=== PATIENT | female | born 1945 | race Caucasian/White ===

== ENCOUNTER 2016-11-17 08:11 | Day surgery (SDC) | payer MEDICARE ==
[~2016-11-17] VITALS: Ht 155 cm; Wt 117.5 kg
[~2016-11-17 08:11] MED LIST: ALMACONE 360 M360 ML PO; ALPHAGAN OP; ALPHAGAN OPHTH D5 ML OP; AMOXICILLIN 50500 MG PO; ASPIRIN 32325 MG/TAB PO; ASPIRIN 81M81 MG/TA2 PO; B-121000 MCG PO; BETIMOL 0.5% OPH5 ML OP; CALCITRIOL PO; CALCIUM + D 5001 TAB PO; CALCIUM/VITAMIN1 TA2 PO; CALTRATE 600 +1 TAB PO; COLACE 100100 MG/CAP PO; CYMBALTA 30MG30 MG PO; DDAVP PO; DDAVP0.1 MG PO; DEMADEX 20MG20 M1 PO; DESMOPRESSIN A0.1 MG PO; DITROPAN XL10 MG PO; FEOSOL45 MG PO; FERROUS SU325 MG/TAB PO; FLUOXETINE20 MG PO; FOLIC ACID PO; FUROSEMIDE20 MG PO; GENTLE LAXATIVE10 MG RC; HYDROCODONE/APAP PO; LASIX 20MG TABL20 MG PO; LASIX20 MG PO; LEVAQUIN 750MG750 M1 PO; LEVOTHYROXINE PO; MAG-OX 400400 MG/TAB PO; MILK OF MA400 MG/52 PO; MIRALAX PA17 GM/Dose PO; MONODOX100 PO; MULTAQ400 MG PO; NEXIUM 40MG40 MG PO; NEXIUM40 MG PO; NORCO 325 MG-7.1 TAB PO; NYSTATIN POWDER15 GM TOP; OSCAL 500MG/VI500 MG PO; PRAVACHOL 20MG20 MG PO; PRAVASTATIN20 MG PO; PREDNISONE 2.52.5 MG PO; PREDNISONE 5MG5 MG PO; PREDNISONE20 MG PO; PRIL40 PO; PROZAC 20MG20 MG PO; PROZAC40 MG PO; ROBAXIN 75750 MG/TAB PO; ROCALTROL0.5 MCG PO; ROCEPHIN VIA1 G/VIAL IV; SYNTHROID0.075 MG PO; SYNTHROID0.088 MG/T PO; TEARS AGAIN OU; TIMOLOL 0.5% OP10 ML OU; TRUSOPT OCUMETE10 ML OP; TYLENOL 325MG325 MG PO; TYLENOL SU650 MG/SUP RC; Tramadol; ULTRAM 50MG TAB50 MG PO; VESICARE5 MG PO; VICODIN 5/5001 UDTAB PO; VITAMIN B-1000 MCG/T PO; VITAMIN B121000 MC2 SL; VITAMIN B121000 MCG PO; VITAMIN C250250 MG PO; VITAMIN D1000 IU PO; VITAMIN D31000 IU PO; XALATAN EYE DROPS OD; ZEBETA 5MG5 MG PO; ZOFRAN 4MG T4 MG/TAB PO
[2016-11-17 08:58] LABS: MEAN CELL VOLUME 95 fl (80.0-100.0); MEAN CORPUSCULAR HGB CONC 33 g/dl (33.0-37.0); MEAN PLATELET VOLUME 9.1 fl (7.4-10.4); PLATELET COUNT 188 K/mm3 (130-400); REDCELL DISTRIBUTION WIDTH-CV 14.7 % (11.5-14.5); WHITE BLOOD COUNT 7.9 K/mm3 (4.8-10.8)
[2016-11-17 09:00] VITALS: BP 123/67; PULSE 68; TEMP 98
[2016-11-17 09:04] LABS: CALCIUM 8.9 mg/dL (8.4-10.2); CREATININE, serum 1.53 mg/dL (0.52-1.25); POTASSIUM 3.6 mmol/L (3.4-5.0)
[2016-11-17 09:05] LABS: HEMATOCRIT 34.1 % (37.0-47.0); HEMOGLOBIN 11.3 g/dl (12.5-16.0); MEAN CORPUSCULAR HEMOGLOBIN 31 pg (27.0-31.0)
[2016-11-17 09:08] LABS: INR 1.7 (0.8-3.0); PROTHROMBIN TIME 18.9 SECONDS (9.7-12.8)
[2016-11-17] MEDS ORDERED: K-DUR20 MEQ PO (09:11)
[2016-11-17] MEDS ORDERED: CARDIZEM CD 12120 MG PO (09:19)
[2016-11-17] MEDS ORDERED: XARELTO15 MG PO (09:20)
[2016-11-17 09:45] VITALS: BP 103/75; PULSE 61
[2016-11-17 10:00] VITALS: BP 112/68; PULSE 77
[2016-11-17 10:15] VITALS: BP 112/69; PULSE 71
[2016-11-17 10:30] VITALS: BP 119/75; PULSE 90; TEMP 97.3
== END 2016-11-17 11:00 | disposition home or self-care (01) ==
LOC: COL.CAR 08:11
PROVIDERS: Internal Medicine Cardiovascular Disease
DX: I48.91 Unspecified atrial fibrillation (principal)
CPT/HCPCS: J2704; J7120

== ENCOUNTER → 2017-04-30 | Outpatient (CLI) | payer MEDICARE ==
[~2017-04-30] MED LIST changes: +CARDIZEM CD 12120 MG PO; +K-DUR20 MEQ PO; +XARELTO15 MG PO
== END ==
LOC: MC.RAD 11:20
DX: Z12.31 Encounter for screening mammogram for malignant neoplasm of breast (principal)

== ENCOUNTER → 2017-08-04 | Outpatient (CLI) | payer MEDICARE | LOC: MHCPAIN 12:08 | DX: G89.29 Other chronic pain (principal); M47.812 Spondylosis without myelopathy or radiculopathy, cervical region; R51 Headache; M54.81 Occipital neuralgia | CPT/HCPCS: G0463 ==

== ENCOUNTER → 2017-08-13 | Outpatient (CLI) | payer MEDICARE | LOC: COL.CARD 13:00 | DX: G44.229 Chronic tension-type headache, not intractable (principal); I49.9 Cardiac arrhythmia, unspecified ==

== ENCOUNTER 2017-11-09 10:22 | Day surgery (SDC) | payer MEDICARE ==
[~2017-11-09] VITALS: Ht 154.9 cm; Wt 122.3 kg
[2017-11-09] MEDS ORDERED: ZANAFLEX 4MG TAB4 MG PO (12:01)
[2017-11-09] MEDS ORDERED: EFFEXOR XR75 MG/CAP PO (12:01)
[2017-11-09] MEDS ORDERED: LIPITOR20 MG PO (12:02)
[2017-11-09] MEDS ORDERED: CEPHALEXIN500 M1 PO (12:04)
[2017-11-09 12:14] VITALS: BP 140/64; PULSE 84; TEMP 98.2
[2017-11-09 14:02] VITALS: BP 104/59; PULSE 96
[2017-11-09 14:17] VITALS: BP 106/66; PULSE 87
[2017-11-09] MEDS ORDERED: NORCO 325 MG-51 TAB PO (14:29)
[2017-11-09 14:32] VITALS: BP 95/55; PULSE 85
== END 2017-11-09 15:00 | disposition home or self-care (01) ==
LOC: SDCO 10:22
DX: N39.41 Urge incontinence (principal); Z87.440 Personal history of urinary (tract) infections; I10 Essential (primary) hypertension; G47.30 Sleep apnea, unspecified; Z85.850 Personal history of malignant neoplasm of thyroid; Z79.899 Other long term (current) drug therapy; Z79.01 Long term (current) use of anticoagulants
CPT/HCPCS: C1767; C1778; C1787; C1894; J2250; J2405; J2704; J2765; J3010; J7120

== ENCOUNTER 2018-10-16 01:56 | Inpatient (IN) | payer MEDICARE ==
[~2018-10-16] VITALS: Ht 157.5 cm; Wt 127.8 kg
[~2018-10-16 01:56] MED LIST changes: +CEPHALEXIN500 M1 PO; +EFFEXOR XR75 MG/CAP PO; +LIPITOR20 MG PO; +NORCO 325 MG-51 TAB PO; +ZANAFLEX 4MG TAB4 MG PO
[2018-10-16 06:05] VITALS: BP 148/89; PULSE 67; TEMP 97.4
[2018-10-16 07:06] LABS: MEAN CELL VOLUME 99 fl (80.0-100.0); MEAN CORPUSCULAR HGB CONC 31 g/dl (33.0-37.0); MEAN PLATELET VOLUME 8.4 fl (7.4-10.4); PLATELET COUNT 186 K/mm3 (130-400); RED BLOOD COUNT 2.75 M/mm3 (4.10-5.30); REDCELL DISTRIBUTION WIDTH-CV 16.7 % (11.5-14.5)
[2018-10-16 07:07] LABS: HEMATOCRIT 27.3 % (37.0-47.0); HEMOGLOBIN 8.5 g/dl (12.5-16.0); MEAN CORPUSCULAR HEMOGLOBIN 31 pg (27.0-31.0)
--- NOTE | 2018-10-16 07:12 | NUR ---
Patient to the floor at 0510. Patient reported to refuse IV. During 5-page assessment, patient kept falling asleep. Attempted to talk to patient about medications, but patient stated she doesn't know what she takes and she gets her medications from [facility]. She had brought some of her medications with her in a black bag, but refused to send them to pharmacy and states she will not take hospital medications.
[2018-10-16 07:15] LABS: ALBUMIN 3.9 gm/dL (3.5-5.0); BILIRUBIN,TOTAL 0.7 mg/dL (0.0-1.0); CALCIUM 9.8 mg/dL (8.4-10.2); CREATININE, serum 1.83 (0.52-1.25); TOTAL PROTEIN 6.9 gm/dL (6.4-8.2)
[2018-10-16 07:18] LABS: PROTHROMBIN TIME 22.4 SECONDS (9.7-12.8)
[2018-10-16 07:22] LABS: PRE ALBUMIN 16.4 mg/dL (17.6-36.0)
[2018-10-16 08:14] VITALS: BP 134/46; PULSE 83; TEMP 97.7
--- NOTE | 2018-10-16 09:30 | NUR ---
PATIENT ASSESSMENT COMPLETED. WE TALKED AT LENGTH ABOUT TAKING OUR MEDICATIONS NOT HERS FOR ROUTINE USE. WAS ASSISTED TO THE BEDSIDE COMMODE AND TOLERATED WELL. WHEN SHE RETURNS TO BED SHE COMPLAINS OF SHOOTING PAIN TO THE LEFT KNEE.
[2018-10-16 09:52] LABS: ANISOCYTOSIS 1+; BAND 5 % (0-10); EOSINOPHIL 2 % (0-4); LYMPHOCYTE 27 % (20.0-51.0); NEUTROPHILS 61 % (42.0-75.2)
[2018-10-16 09:53] LABS: PLATELET ESTIMATE NORMAL (NORMAL)
--- NOTE | 2018-10-16 10:06 | NUR ---
REVIEWED HOME EYE DROPS AND THE NONFORMULARY HOME MEDICATION THAT SHE WILL BE RESUMING WHILE HERE IN THE HOSPITAL WITH DR. GUERRA. HE WILL REVIEW OTHER HOME MEDICATIONS THAT HAVE NOT BEEN RESTARTED.
--- NOTE | 2018-10-16 11:38 | NUR ---
Plan is to return home independently. Assess: Patient reports that she resides at home with her mother who is 95. Patient indicated that she is pending Knee surgery and would like to go to [facility] for rehab. Patient reports that she is wanting to go home with homehealth prior to surgery and believes that she can manage until then. Patient reports that she is using a walker and can everyday. Patient reports that her DPOA an EMR contact is Pam Mendoza. Patient reports being able to transport self. Action educated patient on homehealth care and provided patient with Medicare.gov resource sheet. Awaiting decision to send referral. Will confirm with [facility] a for placement tracking.
[2018-10-16 11:49] VITALS: BP 115/67; PULSE 66; TEMP 97.2
[2018-10-16 14:58] LABS: COLLECTION METHOD CLEAN CATCH
[2018-10-16 15:07] LABS: PH 6 (5-8); SQUAMOUS EPITHELIAL None Seen /hpf; URINE APPEARANCE Turbid; URINE BACTERIA None Seen /hpf; URINE BILIRUBIN Negative (NEGATIVE); URINE BLOOD 1+ (NEGATIVE); URINE COLOR Yellow; URINE GLUCOSE Negative (NEGATIVE); URINE KETONE Negative (NEGATIVE); URINE LEUKOCYTE ESTERASE 3+ (NEGATIVE); URINE NITRATE Positive (NEGATIVE); URINE PROTEIN(semi-quant) 2+ (NEGATIVE); URINE UROBILINOGEN Negative (NEGATIVE)
[2018-10-16 15:32] VITALS: BP 144/93; PULSE 66; TEMP 97.8
--- NOTE | 2018-10-16 17:29 | NUR ---
PATIENT UP IN BED EATING SUPPER. SHE IS NOW WILLING TO TAKE HER HOME MED AND XARELTO. NO OTHER NEEDS OR REQUESTS AT THIS TIME
[2018-10-16 19:51] VITALS: BP 124/73; PULSE 81; TEMP 97.8
--- NOTE | 2018-10-16 20:10 | NUR ---
Shift assessment complete. Pt resting in bed, awake, a&o, cooperative c cares. Pt reports continued pain to L knee, PRN [place] admin per pt req. Pt denies any other c/o. No IV access at this time, pt ref. Pt denies further needs at this time. Call light in reach, will monitor.
[2018-10-16 23:53] VITALS: BP 111/63; PULSE 40; TEMP 97.3
[2018-10-17 04:16] VITALS: BP 134/65; PULSE 74; TEMP 97.3
--- NOTE | 2018-10-17 05:50 | NUR ---
Pt resting in bed, condition unchanged. Pt has rested well this shift c very few needs. Pain well controlled c PRN pain med x1 dose at HS. Pt s needs at this time. No needs at this time. Call light in reach.
[2018-10-17 06:28] LABS: MEAN CELL VOLUME 100 fl (80.0-100.0); MEAN CORPUSCULAR HGB CONC 31 g/dl (33.0-37.0); MEAN PLATELET VOLUME 8.7 fl (7.4-10.4); PLATELET COUNT 159 K/mm3 (130-400); RED BLOOD COUNT 2.56 M/mm3 (4.10-5.30); REDCELL DISTRIBUTION WIDTH-CV 16.8 % (11.5-14.5); RETIC # 0.08 M/mm3 (0.02-0.16); RETIC % 3.2 % (0.5-3.52)
[2018-10-17 06:29] LABS: HEMATOCRIT 25.7 % (37.0-47.0); HEMOGLOBIN 7.9 g/dl (12.5-16.0); MEAN CORPUSCULAR HEMOGLOBIN 31 pg (27.0-31.0)
[2018-10-17 06:50] LABS: ALANINE AMINOTRANSFERASE 25 U/L (9-52); ALBUMIN 3.4 gm/dL (3.5-5.0); ALKALINE PHOSPHATASE 135 U/L (50-136); ANION GAP 10 mmol/L (7-16); AST,SGOT 41 U/L (15-37); BILIRUBIN,TOTAL 0.5 mg/dL (0.0-1.0); BLOOD UREA NITROGEN 29 mg/dL (7-17); CALCIUM 9.2 mg/dL (8.4-10.2); CARBON DIOXIDE 28 mmol/L (22-30); CHLORIDE 101 mmol/L (98-107); CREATININE, serum 1.45 (0.52-1.25); GLUCOSE 128 mg/dL (74-106); IRON,SERUM 65 ug/dL (35-150); MAGNESIUM 2.1 mg/dL (1.6-2.3); PHOSPHOROUS 4.5 mg/dL (2.5-4.5); POTASSIUM 4.1 mmol/L (3.4-5.0); SODIUM 138 mmol/L (137-145)
[2018-10-17 07:00] LABS: TOTAL IRON BINDING CAPACITY 261 ug/dL (265-497)
[2018-10-17 07:12] LABS: BAND 3 % (0-10); EOSINOPHIL 5 % (0-4); LYMPHOCYTE 17 % (20.0-51.0); NEUTROPHILS 67 % (42.0-75.2); NUCLEATED RED BLOOD CELL 1 (0-6)
[2018-10-17 07:13] LABS: PLATELET ESTIMATE NORMAL (NORMAL)
[2018-10-17 07:24] LABS: FERRITIN 42 ng/mL (11-264)
[2018-10-17 07:34] LABS: THYROID STIMULATING HORMONE < 0.015 uIU/mL (0.465-4.680)
[2018-10-17 08:07] VITALS: BP 120/74; PULSE 79; TEMP 98
[2018-10-17 11:32] VITALS: BP 129/76; PULSE 94; TEMP 97.6
--- NOTE | 2018-10-17 11:55 | NUR ---
Pt alert and oriented. Pt stable this am. Pain managed with Hydrocodone PRN. Pt has chronic left knee pain and fibromyalgia. Pt obese and BLE edema noted. Pt up with SBA with walker. Pt has no IV because she refuses. Pt was to have MRI but cancelled and will see ortho per consult this afternoon. 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
[2018-10-17] MEDS ORDERED: CEPHALEXIN500 M1 PO (12:04)
--- NOTE | 2018-10-17 14:48 | NUR ---
DONNY and SW student met with the patient to review discharge plan and to inquire home health preference. The patient reports that she is not interested in home health at this time and would rather get that service set up after her surgery. The patient is to discharge back home today, 10/17. No additional needs at this time.
[2018-10-17 16:41] LABS: CREATININE, serum 1.51 (0.52-1.25); FRACTIONAL EXCRETION OF NA+ 0.4 %
--- NOTE | 2018-10-17 17:00 | NUR ---
Pt given discharge instructions and reviewed medications and rx to sweet pickle maker. Pt rates pain 2/. Pt SBA with walker. Pt did not have an IV. Pt has all belongings and escorted out by aide under contact precautions. Pt given all meds from pharmacy that pt brought in. Pt has appt with Dr. Keene on Wed. Pt denies needs and friend here to pick her up.
[2018-10-17 21:05] LABS: FOLATE (FOLIC ACID) 4.9 ng/mL (7.0-31.4)
== END 2018-10-17 17:30 | disposition home or self-care (01) | DRG 556 ==
LOC: COL.ER 01:56 → MEDICAL 04:11
PROVIDERS: Nurse Practitioner; Physician Assistant; ADMIT Family Medicine
DX: M25.562 Pain in left knee (principal); E23.0 Hypopituitarism; N39.0 Urinary tract infection, site not specified; N17.9 Acute kidney failure, unspecified; Z68.42 Body mass index [BMI] 45.0-49.9, adult; I48.91 Unspecified atrial fibrillation; J44.9 Chronic obstructive pulmonary disease, unspecified; E66.9 Obesity, unspecified; M79.7 Fibromyalgia; M06.9 Rheumatoid arthritis, unspecified; Z85.850 Personal history of malignant neoplasm of thyroid; E89.0 Postprocedural hypothyroidism; Z79.890 Hormone replacement therapy; Z79.01 Long term (current) use of anticoagulants; Z88.3 Allergy status to other anti-infective agents; Z88.2 Allergy status to sulfonamides; Z88.8 Allergy status to other drugs, medicaments and biological substances; I12.9 Hypertensive chronic kidney disease with stage 1 through stage 4 chronic kidney disease, or unspecified chronic kidney disease; G47.33 Obstructive sleep apnea (adult) (pediatric); H40.9 Unspecified glaucoma; E78.5 Hyperlipidemia, unspecified; D64.9 Anemia, unspecified; N18.3 Chronic kidney disease, stage 3 (moderate); M17.12 Unilateral primary osteoarthritis, left knee
CPT/HCPCS: 99222-AI; 99233-AI; A9284; J3010; J7512

== ENCOUNTER → 2018-10-19 | Outpatient (CLI) | payer MEDICARE | LOC: ZCOL.LAB 16:58 | DX: Z01.812 Encounter for preprocedural laboratory examination (principal); Z86.14 Personal history of Methicillin resistant Staphylococcus aureus infection ==

== ENCOUNTER 2018-12-02 13:47 | Outpatient (RCR) | payer MEDICARE ==
[~2018-12-02 13:47] MED LIST changes: -ALPHAGAN OPHTH D5 ML OP; +ALPHAGAN OPHTH D5 ML OU; -TRUSOPT OCUMETE10 ML OP; +TRUSOPT OCUMETE10 ML OU; -XALATAN EYE DROPS OD; +XALATAN EYE DROPS OU
[2019-01-09] MEDS ORDERED: MACRODANTIN100 PO (10:49)
[2019-01-09] MEDS ORDERED: TYLENOL 500MG500 MG PO (10:50)
[2019-01-09] MEDS ORDERED: DDAVP (10:51)
[2019-01-09] MEDS ORDERED: CALCITRIOL PO (13:58)
[2019-01-09] MEDS ORDERED: EFFEXOR-XR150 MG PO (14:00)
[2019-01-09] MEDS ORDERED: LIPITOR 10MG10 MG PO (14:05)
[2019-01-09] MEDS ORDERED: ZANAFLEX2 MG PO (14:09)
[2019-01-09] MEDS ORDERED: ROXICODONE 55 MG/TAB PO (14:15)
[2019-01-09] MEDS ORDERED: NYSTATIN POWDER15 GM TOP (14:15)
[2019-01-12] MEDS ORDERED: OMNICEF 300MG300 MG PO (09:30)
== END 2019-02-17 17:35 | disposition home or self-care (01) ==
LOC: WSC 13:47
DX: M17.12 Unilateral primary osteoarthritis, left knee (principal); Z96.652 Presence of left artificial knee joint

== ENCOUNTER → 2018-12-19 | Outpatient (CLI) | payer MEDICARE ==
[~2018-12-19] MED LIST changes: +ALPHAGAN OPHTH D5 ML OP; -ALPHAGAN OPHTH D5 ML OU; +TRUSOPT OCUMETE10 ML OP; -TRUSOPT OCUMETE10 ML OU; +XALATAN EYE DROPS OD; -XALATAN EYE DROPS OU
[2018-12-19 19:48] LABS: COLLECTION METHOD CLEAN CATCH
[2018-12-19 20:03] LABS: PH 6 (5-8); URINE APPEARANCE Turbid; URINE BACTERIA Moderate /hpf; URINE BILIRUBIN Negative (NEGATIVE); URINE BLOOD 1+ (NEGATIVE); URINE COLOR Amber; URINE GLUCOSE Negative (NEGATIVE); URINE KETONE Negative (NEGATIVE); URINE LEUKOCYTE ESTERASE 3+ (NEGATIVE); URINE NITRATE Negative (NEGATIVE); URINE PROTEIN(semi-quant) 1+ (NEGATIVE); URINE UROBILINOGEN Negative (NEGATIVE); URINE WBC >50 /hpf
== END ==
LOC: ZCOL.LAB 19:18
PROVIDERS: Family Medicine
DX: N39.0 Urinary tract infection, site not specified (principal)

== ENCOUNTER 2019-01-09 09:57 | Inpatient (IN) | payer MEDICARE ==
[~2019-01-09] VITALS: Ht 154.9 cm; Wt 128.8 kg
[2019-01-09] VITALS (434 sets, daily range): BP systolic 101–131; BP diastolic 62–78; PULSE 99–121; TEMP 98.8–99.3; O2SAT 66–100
[~2019-01-09 09:57] MED LIST changes: -ALPHAGAN OPHTH D5 ML OP; +ALPHAGAN OPHTH D5 ML OU; -TRUSOPT OCUMETE10 ML OP; +TRUSOPT OCUMETE10 ML OU; -XALATAN EYE DROPS OD; +XALATAN EYE DROPS OU
[2019-01-09 10:32] LABS: BASO # 0.1 (0.0-0.2); BASO % 0.8 % (0.0-2.0); EOS # 0.2 (0.0-0.7); EOS % 1.5 % (0-4.0); GRAN # 14.1 (1.4-6.5); GRAN % 85.5 % (42.2-75.2); LYMPH % 6.1 % (20.0-51.0); MEAN CELL VOLUME 102 fl (80.0-100.0); MEAN CORPUSCULAR HGB CONC 30 g/dl (33.0-37.0); MEAN PLATELET VOLUME 8.1 fl (7.4-10.4); MONO # 0.9 (0.1-0.6); MONO % 5.6 % (1.7-9.3); PLATELET COUNT 218 K/mm3 (130-400); RED BLOOD COUNT 2.68 M/mm3 (4.10-5.30); REDCELL DISTRIBUTION WIDTH-CV 19.1 % (11.5-14.5)
[2019-01-09 10:33] LABS: ALANINE AMINOTRANSFERASE 17 U/L (9-52); ALBUMIN 4.1 gm/dL (3.5-5.0); ALKALINE PHOSPHATASE 156 U/L (50-136); ANION GAP 12 mmol/L (7-16); AST,SGOT 27 U/L (15-37); BILIRUBIN,TOTAL 1.1 mg/dL (0.0-1.0); BLOOD UREA NITROGEN 20 mg/dL (7-17); CALCIUM 7.4 mg/dL (8.4-10.2); CARBON DIOXIDE 31 mmol/L (22-30); CHLORIDE 97 mmol/L (98-107); CREATININE, serum 1.16 (0.52-1.25); GLUCOSE 109 mg/dL (74-106); POTASSIUM 3.1 mmol/L (3.4-5.0); SODIUM 141 mmol/L (137-145); TOTAL PROTEIN 7.2 gm/dL (6.4-8.2)
[2019-01-09 10:37] LABS: HEMATOCRIT 27.3 % (37.0-47.0); HEMOGLOBIN 8.2 g/dl (12.5-16.0); MEAN CORPUSCULAR HEMOGLOBIN 31 pg (27.0-31.0)
[2019-01-09 10:43] LABS: INR 1.8 (0.8-3.0); PROTHROMBIN TIME 21.3 SECONDS (9.7-12.8)
[2019-01-09 10:45] LABS: PARTIAL THROMBOPLASTIN TIME 35.8 SECONDS (26.0-37.0)
[2019-01-09 10:46] LABS: TROPONIN-I < 0.012 ng/mL (0.000-0.035)
[2019-01-09] MEDS ORDERED: MACRODANTIN100 PO (10:49)
[2019-01-09] MEDS ORDERED: TYLENOL 500MG500 MG PO (10:50)
[2019-01-09] MEDS ORDERED: DDAVP (10:51)
[2019-01-09 11:35] LABS: COLLECTION METHOD CLEAN CATCH
[2019-01-09 11:42] LABS: MUCOUS Present /lpf; PH 6 (5-8); SQUAMOUS EPITHELIAL 0-2 /hpf; URINE APPEARANCE Clear; URINE BACTERIA Rare /hpf; URINE BILIRUBIN Negative (NEGATIVE); URINE BLOOD 1+ (NEGATIVE); URINE COLOR Yellow; URINE GLUCOSE Negative (NEGATIVE); URINE KETONE Negative (NEGATIVE); URINE LEUKOCYTE ESTERASE Negative (NEGATIVE); URINE NITRATE Negative (NEGATIVE); URINE PROTEIN(semi-quant) Negative (NEGATIVE); URINE RBC 0-2 /hpf; URINE UROBILINOGEN Negative (NEGATIVE)
--- NOTE | 2019-01-09 13:10 | NUR ---
Report received from Conrado LACEY in ER and pt brought to ICU 3 on bipap. Did have to be moved from bed with slide board. Short of breath when lying flat. Bipap at bedside and placed on. Pt denies any pain. Will continue to follow.
[2019-01-09] MEDS ORDERED: CALCITRIOL PO (13:58)
[2019-01-09] MEDS ORDERED: EFFEXOR-XR150 MG PO (14:00)
[2019-01-09] MEDS ORDERED: LIPITOR 10MG10 MG PO (14:05)
[2019-01-09] MEDS ORDERED: ZANAFLEX2 MG PO (14:09)
[2019-01-09] MEDS ORDERED: NYSTATIN POWDER15 GM TOP (14:15)
[2019-01-09] MEDS ORDERED: ROXICODONE 55 MG/TAB PO (14:15)
[2019-01-09 15:46] LABS: ARTERIAL BLD GAS O2 SATURATION 97.1 % (92-100); ARTERIAL BLD GAS TCO2 CT 28.8; ARTERIAL BLOOD GAS BASE EXCESS 3.8 (-2-2); ARTERIAL BLOOD GAS HCO3 27.7 meq/L (22-26); ARTERIAL BLOOD GAS PCO2 38.6 mmHg (35-45); ARTERIAL BLOOD GAS PO2 100.8 mmHg (80-100); ARTERIAL BLOOD GAS pH 7.47 (7.35-7.45)
--- NOTE | 2019-01-09 17:38 | NUR ---
Returned to ICU [address] via bed with tech at side.
--- NOTE | 2019-01-09 17:54 | NUR ---
Report given to Sari LACEY and care transfered.
--- NOTE | 2019-01-09 17:54 | NUR ---
Report recieved from Jessica LACEY, patient awake in bed ordering supper. Denies needs at this time
--- NOTE | 2019-01-09 20:00 | NUR ---
Patient falls asleep intermittently. Patient has eaten a small portion of her dinner. Tray removed with her permission. Patient is alert and oriented. No complaints of pain. Only complains of slight SOB, but she has been placed on BiPAP and says that it is helping. Assessment complete. Right lung is clear in all patino, left lung has expiratory wheezes in all patino, bases are diminished bilaterally. HR and rhythm irregular, first heart sound heard, patient is in afib and intermittently tachycardic. Bowel sounds are active x4. Patient has edema to upper and lower extremities. Patient has no further needs at this time. Will continue to monitor. Call light within reach.
--- NOTE | 2019-01-09 20:27 | NUR ---
Report given to Mary LACEY
--- NOTE | 2019-01-09 20:30 | NUR ---
Bedside report received from ABHIJIT Guo
[2019-01-09 22:29] LABS: PROCALCITONIN 0.37 ng/mL (0.00-0.09)
[2019-01-09 22:44] LABS: FOLATE (FOLIC ACID) 10.2 ng/mL (7.0-31.4)
[2019-01-10] VITALS (487 sets, daily range): BP systolic 93–126; BP diastolic 54–90; PULSE 67–109; TEMP 97.9–99.2; O2SAT 64–100
--- NOTE | 2019-01-10 | NUR ---
Patient asleep at this time, but awakens to name. Patient is doing well and has no complaints. Patient remains on BiPAP. Vitals are stable and WNL. No further needs at this time, Will continue to monitor. Call light within reach
--- NOTE | 2019-01-10 04:00 | NUR ---
Patient asleep at this time. Awakens to name. No complaints of pain or SOB. Vitals remain stable. Patient remains on BiPAP. Assisted with sips of water. Patient has no further needs at this time. Repositioned for comfort. Will continue to monitor. Call light within reach.
[2019-01-10 05:06] LABS: MEAN CELL VOLUME 102 fl (80.0-100.0); MEAN CORPUSCULAR HGB CONC 30 g/dl (33.0-37.0); MEAN PLATELET VOLUME 8.3 fl (7.4-10.4); PLATELET COUNT 152 K/mm3 (130-400); REDCELL DISTRIBUTION WIDTH-CV 19.1 % (11.5-14.5)
[2019-01-10 05:09] LABS: HEMATOCRIT 21.5 % (37.0-47.0); HEMOGLOBIN 6.4 g/dl (12.5-16.0); MEAN CORPUSCULAR HEMOGLOBIN 30 pg (27.0-31.0)
[2019-01-10 05:15] LABS: CALCIUM 6.7 mg/dL (8.4-10.2); MAGNESIUM 1.9 mg/dL (1.6-2.3); POTASSIUM 3.6 mmol/L (3.4-5.0)
[2019-01-10 06:05] LABS: ANISOCYTOSIS 2+; BAND 9 % (0-10); HYPOCHROMIA 1+; LYMPHOCYTE 4 % (20.0-51.0); NEUTROPHILS 85 % (42.0-75.2); PLATELET ESTIMATE NORMAL (NORMAL)
--- NOTE | 2019-01-10 07:40 | NUR ---
Bedside report given to ABHIJIT Lopez and ABHIJIT Henriquez
--- NOTE | 2019-01-10 09:16 | NUR ---
DONNY met with the patient to discuss discharge plan. The patient lives in [place] with her ninety-five year-old mother, Lacy. She states that her mother is independent and that she has no concerns with her mom being alone at home. She states that her sister, Pam Cheng, also lives in [place]. She reports independence with ADLs and has walkers and a toliet riser. She states that she does receive home health services for PT/OT and group home from [facility]. She states that they wrap her legs and remove the wraps to help her with her lymphedema. SW contacted and confirmed services from Delvin at [facility]. The patient's PCP is Dr. Hillary Juarez and she receives her medications from [facility]. She reports no difficulties obtaining her meds. The patient does not have advanced directives in EMR, but she states that she believes she has them completed and at home. She states her sister, Pam Cheng, would be her DPOA-HC and next of kin. The patient was not interested in receiving or completing a new DPOA-HC form. The patient plans to return home with her mother and resume services from [facility] upon discharge. The patient is currently requiring oxygen and using a bipap. SW to continue to follow to ensure a safe discharge.
[2019-01-10 13:15] LABS: HEMATOCRIT 24.5 % (37.0-47.0); HEMOGLOBIN 7.5 g/dl (12.5-16.0)
--- NOTE | 2019-01-10 13:42 | NUR ---
Initial visit; Patient thanked Service Operator for looking in on her and wishing her well and offering God's blessings.
--- NOTE | 2019-01-10 14:30 | NUR ---
CALLED REPORT TO ABHIJIT ALONSO.
--- NOTE | 2019-01-10 15:15 | NUR ---
PATIENT TRANSFERRED TO MEDICAL FLOOR, BED 306. PATIENT AMBULATED TO THE BED. CONTACT WAS MADE WITH RECEIVING NURSE,
--- NOTE | 2019-01-10 16:00 | NUR ---
Pt up to room 306 at this time, assisted to bed, oriented to room.
--- NOTE | 2019-01-10 19:29 | NUR ---
Pt assessed, lung sounds clear, on tele regular rate. Pt on 2L NC. Denies SOB. States she gets a little dizzy "but thats normal" when assisted into bed. Denies N/V, chest pain, general pain. Recio in place draining clear pale yellow urine. Pt has enlarged BLE, "elephantiasis" like. Pulses not palpable. Radial pulses palpable. Skin breakdown under abdominal folds and in between leg folds. Excoriation/skin irritation noted under left breast. Pt has nystatin ordered. Pt has no other concerns at this time. Report given to ABHIJIT Sanchez.
[2019-01-11] VITALS (10 sets, daily range): BP systolic 113–142; BP diastolic 69–98; PULSE 56–115; TEMP 97.8–98.8
--- NOTE | 2019-01-11 04:46 | NUR ---
Patient has rested well during the shift. Patient is alert and oriented, answers questions appropriately while awake. Telemetry in place per order. PICC line in RUE, both lumens flush with no resistance. Recio in place, clear yellow urine draining. Patient has reddened yeast like irritation under her pannus and left breast. Patient wears bi pap while sleeping. Has denied pain or shortness of air. Incision to left knee is well approximated, no indications of drainage or irritation. Patient currently denies needs, call light within reach.
[2019-01-11 06:37] LABS: MEAN CELL VOLUME 101 fl (80.0-100.0); MEAN CORPUSCULAR HGB CONC 31 g/dl (33.0-37.0); MEAN PLATELET VOLUME 8.7 fl (7.4-10.4); PLATELET COUNT 169 K/mm3 (130-400); RED BLOOD COUNT 2.21 M/mm3 (4.10-5.30); REDCELL DISTRIBUTION WIDTH-CV 20.4 % (11.5-14.5); RETIC # 0.07 M/mm3 (0.02-0.16); RETIC % 3.3 % (0.5-3.52)
[2019-01-11 06:48] LABS: HEMATOCRIT 22.4 % (37.0-47.0); HEMOGLOBIN 6.9 g/dl (12.5-16.0); MEAN CORPUSCULAR HEMOGLOBIN 31 pg (27.0-31.0)
[2019-01-11 06:54] LABS: CALCIUM 7.2 mg/dL (8.4-10.2); CREATININE, serum 1.05 (0.52-1.25); POTASSIUM 3.8 mmol/L (3.4-5.0)
[2019-01-11 07:19] LABS: ANISOCYTOSIS 2+; LYMPHOCYTE 8 % (20.0-51.0); NEUTROPHILS 88 % (42.0-75.2); PLATELET ESTIMATE NORMAL (NORMAL)
--- NOTE | 2019-01-11 10:46 | NUR ---
SW attended clinical rounding. patient is doing well but needs another unit of blood. Possible discharge tomorrow.
--- NOTE | 2019-01-11 11:00 | NUR ---
Pt assessment completed and charted. Pt denies SOB, dizzines, N/V. Pt on room air at this time, VSS. Pt denies pain. ELTON PICC in place, both lumens flush w/ good blood return. Recio in place w/ clear yellow urine draining. MOrning medications administered per MAR. Pt requesting barrier cream to be applied to left breast fold and under abdominal folds. No other needs at this time.
--- NOTE | 2019-01-11 12:16 | NUR ---
First visit from the telesales advisor. No needs right now.
--- NOTE | 2019-01-11 13:22 | NUR ---
Blood transfusion started at 60 ml/hr. VSS, initial obtained prior. This nurse remaining in room with patient. Pt tolerating transfusion. No complications at this time.
--- NOTE | 2019-01-11 13:45 | NUR ---
This nurse remained with patient first 15 minutes of blood transfusion. Pt tolerating transfusion well. No signs of complications. VSS.
--- NOTE | 2019-01-11 14:45 | NUR ---
Pt blood transfusion in progress. Rate 120 ml/hr. Pt tolerating without complications. VSS.
--- NOTE | 2019-01-11 15:45 | NUR ---
Pt tolerating blood transfusion at 120 ml/hr w/ no complications. VSS.
--- NOTE | 2019-01-11 16:24 | NUR ---
Pt blood transfusion completed. No complications. VSS throughout transfusion.
--- NOTE | 2019-01-11 18:29 | NUR ---
Recio dc'd no complications.
--- NOTE | 2019-01-11 19:07 | NUR ---
Report given to elisabeth pavon.
--- NOTE | 2019-01-11 21:20 | NUR ---
PT SITTING IN CHAIR A+OX4. REPORTS NO PAIN. NO SOA. PT HAD A SM LOOSE BM AT TTHIS TIME. SACREAL REGION HAS NO S/S OF SKIN BREAKDOWN. LUCINDA AREA IS ESCORIATED, RED- BARRIER CREAM APPLIED- PT STATES "THE CREAM IS THE BEST THING NOT POWDER". PICC TO THE RIGHT ARM FLUSHES WELL, BLOOD RETURN NOTED. PEDAL PULSES FELT. LEG WOUNDS NOTED. PANUS AND UNDERNEATH BREAST IS IRRITATED- REQUESTED BARRIER CREAM. PT REPORTS NO NEEDS AT THIS TIME. SHIFT ASSESSMENT COMPLETE. CALL LIGHT IN REACH
--- NOTE | 2019-01-12 00:31 | NUR ---
PT REPORTS FEELING LKE NEEDING TO URINATE- 200 LM ON BLADDER SCANNER- WILL REASSESS AT 0300.
[2019-01-12 03:05] VITALS: BP 135/74; PULSE 76; TEMP 97.6
--- NOTE | 2019-01-12 05:09 | NUR ---
PT HAD AN UNEVENTFUL NIGHT. REPORTED NO PAIN. BIPAP ON DURING NIGHT. IRRITATION NOTED PANNUS AND UNER BREAST. EXCORIATION NOTED IN LUCINDA AREA- PT REPORTS BARRIER CREAM HELPS THE BEST. PT INCONTINED- BRIEF CHANGED NEEDED. LUCINDA CARE PROVIDED. ELTON PICC FLUSHES WELL, BLOOD RETURN NOTED. BRUISING ON RIGHT ELBOW NOTED. RIGHT LEG WOUNDS NOTED. NO SOA. ASSISTED TO BR THROUGHOUT NIGHT WITH GAITBELT AND WALKER. NO NEEDS AT THIS TIME. CALL LIGHT IN REACH.
--- NOTE | 2019-01-12 06:21 | NUR ---
PT REPORTED A HARD TIME URINATING AT 0000, BLADDER SCAN SHOWED 200- REASSESS AT 0200- PT URINATED IN BRIEF. CHANGED AND LUCINDA CARE PROVIDED. NO NEEDS AT THIS TIME. CALL LIGHT IN REACH
--- NOTE | 2019-01-12 06:51 | NUR ---
REPORT GIVEN TO ABHIJIT Worthington. PT SLEEPING.
[2019-01-12 07:22] VITALS: BP 135/80; PULSE 113; TEMP 97.3
[2019-01-12 08:05] LABS: MEAN CELL VOLUME 99 fl (80.0-100.0); MEAN CORPUSCULAR HGB CONC 31 g/dl (33.0-37.0); MEAN PLATELET VOLUME 8.3 fl (7.4-10.4); PLATELET COUNT 162 K/mm3 (130-400); RED BLOOD COUNT 2.65 M/mm3 (4.10-5.30); REDCELL DISTRIBUTION WIDTH-CV 20.2 % (11.5-14.5)
[2019-01-12 08:08] LABS: HEMATOCRIT 26.1 % (37.0-47.0); MEAN CORPUSCULAR HEMOGLOBIN 30 pg (27.0-31.0)
[2019-01-12 08:28] LABS: CALCIUM 7.3 mg/dL (8.4-10.2); CREATININE, serum 0.96 (0.52-1.25)
[2019-01-12 08:33] LABS: EOSINOPHIL 3 % (0-4); LYMPHOCYTE 14 % (20.0-51.0); NEUTROPHILS 80 % (42.0-75.2)
[2019-01-12 08:34] LABS: ANISOCYTOSIS 2+; HYPOCHROMIA 2+; PLATELET ESTIMATE NORMAL (NORMAL)
--- NOTE | 2019-01-12 09:07 | NUR ---
Pt assessment complete. Pt is in the restroom at this time. Pt reports urgency and incontinence. She reports she does not feel like she is emptying her bladder or having good output, pt bladder scanned revealing 0mls. Diuretics and incontinence reviewed with patient. Pt has excoriated pannus and breasts, barrier cream applied per her request. No pain to report. Pt denies SOB, occasional non productive cough present. Pt denies needs at this time. Sitting up in chair, call light within reach.
[2019-01-12] MEDS ORDERED: OMNICEF 300MG300 MG PO (09:30)
--- NOTE | 2019-01-12 11:12 | NUR ---
SW met with patient to present IM and verbally discussed the contents. Patient is agreeable and signed the form. Copy denied and original placed in the chart. Patient is dc home today with her mother and HH provided by [facility]. Discharge orders faxed.
--- NOTE | 2019-01-12 13:30 | NUR ---
Discharge paperwork and instructions reviewed with patient. All questions answered at this time. PICC removed from [facility] by ABHIJIT Gillis. Pt wheeled out of facility at this time.
== END 2019-01-12 15:00 | disposition home health service (06) | DRG 193 ==
LOC: COL.ER 09:57 → ICU 11:22 → COL.ER 11:22 → ICU 14:43 → MEDICAL 01-10 15:35 → COL.ER 01-11 15:35 → MEDICAL 01-11 15:35 → COL.ER 01-11 21:10 → ICU 01-11 21:10 → MEDICAL 01-12 15:00
PROVIDERS: Family Medicine; Physician Assistant; ADMIT Family Medicine
PROC: 02HV33Z Insertion of Infusion Device into Superior Vena Cava, Percutaneous Approach (ICD-10-PCS; principal; 2019-01-09)
DX: J18.9 Pneumonia, unspecified organism (principal); J96.21 Acute and chronic respiratory failure with hypoxia; J90 Pleural effusion, not elsewhere classified; N39.0 Urinary tract infection, site not specified; E66.2 Morbid (severe) obesity with alveolar hypoventilation; Z68.43 Body mass index [BMI] 50.0-59.9, adult; J44.1 Chronic obstructive pulmonary disease with (acute) exacerbation; R65.10 Systemic inflammatory response syndrome (SIRS) of non-infectious origin without acute organ dysfunction; J44.0 Chronic obstructive pulmonary disease with (acute) lower respiratory infection; I89.0 Lymphedema, not elsewhere classified; R19.7 Diarrhea, unspecified; D53.9 Nutritional anemia, unspecified; E87.6 Hypokalemia; E83.51 Hypocalcemia; N28.1 Cyst of kidney, acquired; K44.9 Diaphragmatic hernia without obstruction or gangrene; K80.20 Calculus of gallbladder without cholecystitis without obstruction; K57.90 Diverticulosis of intestine, part unspecified, without perforation or abscess without bleeding; I48.91 Unspecified atrial fibrillation; I12.9 Hypertensive chronic kidney disease with stage 1 through stage 4 chronic kidney disease, or unspecified chronic kidney disease; N18.9 Chronic kidney disease, unspecified; D63.1 Anemia in chronic kidney disease; M06.9 Rheumatoid arthritis, unspecified; E89.0 Postprocedural hypothyroidism; K21.9 Gastro-esophageal reflux disease without esophagitis; M43.8X4 Other specified deforming dorsopathies, thoracic region; H40.9 Unspecified glaucoma; M79.7 Fibromyalgia; E78.5 Hyperlipidemia, unspecified; G43.909 Migraine, unspecified, not intractable, without status migrainosus; R35.0 Frequency of micturition; Z79.52 Long term (current) use of systemic steroids; Z79.891 Long term (current) use of opiate analgesic; Z79.890 Hormone replacement therapy; Z85.850 Personal history of malignant neoplasm of thyroid; Z96.652 Presence of left artificial knee joint; Z88.2 Allergy status to sulfonamides; Z88.6 Allergy status to analgesic agent
CPT/HCPCS: 99222; 99223-AI; 99232-AI; 99233-AI; 99239; A4216; C1751; J0692; J1720; J1940; J1956; J3475; J3480; J7050; J7512; P9016; Q9967

== ENCOUNTER 2019-05-15 12:30 | Day surgery (SDC) | payer MEDICARE ==
[~2019-05-15] VITALS: Ht 155 cm; Wt 131.0 kg
[~2019-05-15 12:30] MED LIST changes: +EFFEXOR-XR150 MG PO; +LIPITOR 10MG10 MG PO; +MACRODANTIN100 PO; +OMNICEF 300MG300 MG PO; +ROXICODONE 55 MG/TAB PO; +TYLENOL 500MG500 MG PO; +ZANAFLEX2 MG PO
[2019-05-15 13:11] LABS: MEAN CELL VOLUME 96 fl (80.0-100.0); MEAN CORPUSCULAR HGB CONC 30 g/dl (33.0-37.0); MEAN PLATELET VOLUME 8.1 fl (7.4-10.4); PLATELET COUNT 196 K/mm3 (130-400); RED BLOOD COUNT 2.68 M/mm3 (4.10-5.30)
[2019-05-15 13:15] VITALS: BP 125/73; PULSE 66; TEMP 97.8
[2019-05-15 13:21] LABS: ANION GAP 11 mmol/L (7-16); BLOOD UREA NITROGEN 25 mg/dL (7-17); CALCIUM 7.8 mg/dL (8.4-10.2); CARBON DIOXIDE 32 mmol/L (22-30); CHLORIDE 96 mmol/L (98-107); CREATININE, serum 1.33 (0.52-1.25); GLUCOSE 113 mg/dL (74-106); POTASSIUM 3.4 mmol/L (3.4-5.0); SODIUM 138 mmol/L (137-145)
[2019-05-15 13:25] LABS: HEMATOCRIT 25.6 % (37.0-47.0); HEMOGLOBIN 7.6 g/dl (12.5-16.0); MEAN CORPUSCULAR HEMOGLOBIN 28 pg (27.0-31.0)
[2019-05-15 13:29] LABS: INR 1.4 (0.8-3.0); PROTHROMBIN TIME 16.6 SECONDS (9.7-12.8)
[2019-05-15] MEDS ORDERED: ROCALTROL0.5 MCG PO (13:29)
[2019-05-15 13:32] LABS: PARTIAL THROMBOPLASTIN TIME 36.3 SECONDS (26.0-37.0)
[2019-05-15] MEDS ORDERED: DESYREL 50MG50 MG PO (13:34)
[2019-05-15 13:53] LABS: THYROID STIMULATING HORMONE < 0.015 uIU/mL (0.465-4.680)
[2019-05-15] MEDS ORDERED: TAMBOCOR 1100 MG/TAB PO (14:30)
[2019-05-15 14:35] VITALS: BP 116/69; PULSE 56
[2019-05-15 14:45] VITALS: BP 114/69; PULSE 60
--- NOTE | 2019-05-15 14:47 | NUR ---
report from Javier Lee.
[2019-05-15 15:00] LABS: RETIC # 0.11 M/mm3 (0.02-0.16); RETIC % 4.3 % (0.5-3.52)
[2019-05-15 15:20] LABS: IRON,SERUM 46 ug/dL (35-150)
[2019-05-15 15:29] LABS: TOTAL IRON BINDING CAPACITY 334 ug/dL (265-497)
--- NOTE | 2019-05-15 15:48 | NUR ---
Discharge instructions given to pt.pt verbalizes understanding.INT removed,catheter tip intact.Pt escorted out via wheelchair by this nurse.
== END 2019-05-15 15:56 | disposition home or self-care (01) ==
LOC: COL.CAR 12:30
PROVIDERS: Internal Medicine Cardiovascular Disease
DX: I48.0 Paroxysmal atrial fibrillation (principal); G47.33 Obstructive sleep apnea (adult) (pediatric); I89.0 Lymphedema, not elsewhere classified; J44.9 Chronic obstructive pulmonary disease, unspecified; K21.9 Gastro-esophageal reflux disease without esophagitis; M06.9 Rheumatoid arthritis, unspecified; G89.29 Other chronic pain; G43.909 Migraine, unspecified, not intractable, without status migrainosus; M79.7 Fibromyalgia; F32.9 Major depressive disorder, single episode, unspecified; I12.9 Hypertensive chronic kidney disease with stage 1 through stage 4 chronic kidney disease, or unspecified chronic kidney disease; N18.9 Chronic kidney disease, unspecified; D63.1 Anemia in chronic kidney disease; Z85.41 Personal history of malignant neoplasm of cervix uteri; Z88.1 Allergy status to other antibiotic agents; Z88.8 Allergy status to other drugs, medicaments and biological substances; Z88.2 Allergy status to sulfonamides; Z96.652 Presence of left artificial knee joint
CPT/HCPCS: J2704; J7030

== ENCOUNTER 2019-05-22 17:04 | Inpatient (IN) | payer MEDICARE ==
[~2019-05-22] VITALS: Ht 154.9 cm; Wt 130.8 kg
[~2019-05-22 17:04] MED LIST changes: +DESYREL 50MG50 MG PO; +TAMBOCOR 1100 MG/TAB PO
[2019-05-22 17:51] LABS: BASO # 0.1 (0.0-0.2); BASO % 0.6 % (0.0-2.0); EOS # 0.3 (0.0-0.7); EOS % 3.2 % (0-4.0); GRAN # 6.4 (1.4-6.5); GRAN % 78.6 % (42.2-75.2); LYMPH # 0.5 (1.2-3.4); LYMPH % 5.8 % (20.0-51.0); MEAN CELL VOLUME 94 fl (80.0-100.0); MEAN CORPUSCULAR HGB CONC 30 g/dl (33.0-37.0); MEAN PLATELET VOLUME 8.9 fl (7.4-10.4); MONO # 0.9 (0.1-0.6); MONO % 11.2 % (1.7-9.3); PLATELET COUNT 154 K/mm3 (130-400); REDCELL DISTRIBUTION WIDTH-CV 18.3 % (11.5-14.5)
[2019-05-22 17:56] LABS: INR 2.4 (0.8-3.0); PROTHROMBIN TIME 28.7 SECONDS (9.7-12.8)
[2019-05-22 18:02] LABS: HEMATOCRIT 23.5 % (37.0-47.0); MEAN CORPUSCULAR HEMOGLOBIN 28 pg (27.0-31.0)
[2019-05-22 18:12] LABS: ALANINE AMINOTRANSFERASE 161 U/L (9-52); ALBUMIN 4.1 gm/dL (3.5-5.0); ALKALINE PHOSPHATASE 511 U/L (50-136); ANION GAP 12 mmol/L (7-16); AST,SGOT 94 U/L (15-37); BILIRUBIN,TOTAL 3.1 mg/dL (0.0-1.0); BLOOD UREA NITROGEN 29 mg/dL (7-17); C-REACTIVE PROTEIN 7.6 mg/dL (0.0-0.9); CALCIUM 6.9 mg/dL (8.4-10.2); CARBON DIOXIDE 29 mmol/L (22-30); CHLORIDE 93 mmol/L (98-107); CREATINE KINASE 201 U/L (30-135); GLUCOSE 106 mg/dL (74-106); SODIUM 134 mmol/L (137-145); TOTAL PROTEIN 7.1 gm/dL (6.4-8.2)
[2019-05-22 18:22] LABS: TROPONIN-I < 0.012 ng/mL (0.000-0.035)
[2019-05-22 19:28] LABS: COLLECTION METHOD CLEAN CATCH
[2019-05-22 19:38] LABS: BUDDING YEAST Present /hpf; PH 6 (5-8); SQUAMOUS EPITHELIAL None Seen /hpf; URINE APPEARANCE Clear; URINE BACTERIA Rare /hpf; URINE BILIRUBIN Negative (NEGATIVE); URINE BLOOD 1+ (NEGATIVE); URINE COLOR Yellow; URINE GLUCOSE Negative (NEGATIVE); URINE KETONE Negative (NEGATIVE); URINE LEUKOCYTE ESTERASE 3+ (NEGATIVE); URINE NITRATE Negative (NEGATIVE); URINE PROTEIN(semi-quant) Negative (NEGATIVE); URINE UROBILINOGEN Negative (NEGATIVE)
--- NOTE | 2019-05-22 20:30 | NUR ---
Patient arrived to medical floor. Assisted to bedside commode by staff x2 heavy assist, weakness.
[2019-05-22] MEDS ORDERED: NYAMYC100000 U/G TP (21:20)
--- NOTE | 2019-05-22 21:20 | NUR ---
Resting in bed. Assessment complete. Lungs clear. Heart sounds normal. Bowels active x4. Pulses strong throughout. Bilateral lower leg edema +2. Bilateral upper extremity bruising. Left elbow skin tear-covered with dressing. Groin area red and excoriated. Clean and placed interdry at this time. Right AC INT flushed without complications. Dr. Hays notified of patient arrival. Will see patient in AM. Orders for potassium protocol, telemetry and to infuse 1 unit of blood received. Lab notified. Blood order entired by ED doc.
[2019-05-22 21:26] VITALS: BP 111/69; PULSE 52; TEMP 98.3
[2019-05-22 22:29] VITALS: BP 105/59; PULSE 53; TEMP 97.7
--- NOTE | 2019-05-22 22:30 | NUR ---
Blood transfusion started at this time. Consent signed prior and procedure/reaction signs and symptoms reviewed with patient. Patient voiced understanding.
[2019-05-22 22:47] VITALS: BP 108/62; PULSE 72; TEMP 97.5
[2019-05-22 23:17] VITALS: BP 108/62; PULSE 55; TEMP 97.5
[2019-05-23] VITALS (8 sets, daily range): BP systolic 105–130; BP diastolic 53–75; PULSE 54–98; TEMP 97.4–98.5
--- NOTE | 2019-05-23 01:15 | NUR ---
Up to bedside commode x2 assist at this time. Incontinent of urine. Cares provided.
--- NOTE | 2019-05-23 04:32 | NUR ---
Resting in bed. Provided with snack. Denies other needs. call light reach.
--- NOTE | 2019-05-23 05:50 | NUR ---
Patient received x1 unit of blood without complications. Incontinent of urine during night. Cares provided each time. Otherwise uneventful night. Resting in bed this AM.
--- NOTE | 2019-05-23 07:23 | NUR ---
Report given to ABHIJIT Gonsalves
[2019-05-23 07:35] LABS: ALBUMIN 3.7 gm/dL (3.5-5.0); BILIRUBIN,TOTAL 3.3 mg/dL (0.0-1.0); CALCIUM 6.6 mg/dL (8.4-10.2); CREATININE, serum 1.18 (0.52-1.25); POTASSIUM 3.5 mmol/L (3.4-5.0); TOTAL PROTEIN 6.5 gm/dL (6.4-8.2)
[2019-05-23 07:55] LABS: BASO % 0.6 % (0.0-2.0); EOS # 0.1 (0.0-0.7); EOS % 1.8 % (0-4.0); GRAN # 5.5 (1.4-6.5); GRAN % 76.6 % (42.2-75.2); LYMPH # 0.8 (1.2-3.4); LYMPH % 10.4 % (20.0-51.0); MEAN CELL VOLUME 93 fl (80.0-100.0); MEAN CORPUSCULAR HGB CONC 30 g/dl (33.0-37.0); MEAN PLATELET VOLUME 9.1 fl (7.4-10.4); MONO # 0.7 (0.1-0.6); MONO % 9.8 % (1.7-9.3); PLATELET COUNT 129 K/mm3 (130-400); RED BLOOD COUNT 2.58 M/mm3 (4.10-5.30); REDCELL DISTRIBUTION WIDTH-CV 18.9 % (11.5-14.5)
[2019-05-23 07:57] LABS: HEMOGLOBIN 7.1 g/dl (12.5-16.0); MEAN CORPUSCULAR HEMOGLOBIN 28 pg (27.0-31.0)
--- NOTE | 2019-05-23 07:58 | NUR ---
Patient awake and alert, did leave floor at 0715 for GI bleed scan that is to take approximately 2 hours to complete. He is to have dialysis after. Prior to leaving floor his respirations were noted to be even and nonlabored while in bed. Slightly labored after getting up to the wheelchair. Oxygen is in place via nasal cannula at 4L which is reported to be his baseline.
--- NOTE | 2019-05-23 08:00 | NUR ---
Seen patient awake, lying on bed with CPAP on. Patient is alert and oriented. Denies any pain. With peripheral line on right antecubital, no redness or swelling noted. Assisted in reposition in bed for her breakfast.
--- NOTE | 2019-05-23 15:00 | NUR ---
Informed hospitalist that potassium protocol was not started this morning since her last dose of effervescent was at 0417H. said to repeat the potassium labwork before starting the potassium protocol. Last potassium is 3.5, GFR-45.
--- NOTE | 2019-05-23 15:17 | NUR ---
Sugar Coating Hand met with patient to discuss discharge plan. Patient lives with her mother Lacy (ph#[phone]) in [place] and sees Dr. Hillary Juarez at [facility] for primary care. Patient obtains medications from [facility] with no difficulties. Patient reports she has a walker, seat riser, and CPAP at home. Patient also reports independence with ADLS. Patient states she has Advance Directives completed but SW was unable to locate them in EMR. Patient states her DPOA-HC is her sister, Pam (ph#[phone]). Patient plans to return home upon discharge.
[2019-05-23 16:09] LABS: MAGNESIUM 1.7 mg/dL (1.6-2.3); PHOSPHOROUS 2.9 mg/dL (2.5-4.5); POTASSIUM 3.3 mmol/L (3.4-5.0)
[2019-05-23 16:29] LABS: BILIRUBIN,DIRECT 1.5 mg/dL (0.0-0.4)
[2019-05-23 16:39] LABS: HEMATOCRIT 24.6 % (37.0-47.0); HEMOGLOBIN 7.5 g/dl (12.5-16.0); TSH w REFLEX 0.015 uIU/mL (0.465-4.680)
--- NOTE | 2019-05-23 16:50 | NUR ---
Assisted patient for bedside commode. Perineal care done. Informed patient about the bowel preparation and diet she will have for her procedure jacinda. SCD doesn't fit to her and Brina called the provider and verbalized that it's okay. IV fluids started on right forearm. Consent for surgery signed by patient. Instructed patient to call nurse if she's gonna have her bowel movement for so we can collect for the stool with occult blood test.
--- NOTE | 2019-05-23 17:50 | NUR ---
ICU nurse called to inform me about tele of the patient which is AFIB. Called Dr. Acevedo to update him about the patient and that she has history of AFIB. Patient not in pain, no difficulty of breathing, latest blood pressure 118/53. Dr. Acevedo ordered for EKG and start of medicine.
--- NOTE | 2019-05-23 19:18 | NUR ---
Call placed to Ginny regarding a-fib and medication that was to be ordered by Dr. Acevedo. Did notify her that we did not see the order for the one time dose of medication. Was notified that patient was only going to be monitored and the next shift is to let her know if rate goes over 100.
--- NOTE | 2019-05-23 19:32 | NUR ---
Endorsed patient to Jessica, rn night nurse. Patient is awake, lying on bed. Jessica was able to find SCD bariatric and will try it on her shift. Informed patient about the Miralax bowel prep.
--- NOTE | 2019-05-23 20:00 | NUR ---
Resting in bed. Assessment complete. Lungs diminshed. Heart sounds normal. Bowels active x4. Pulses present. Bilateral lower leg edema +3. Left shoulder and bilateral forearm bruising. Left elbow skin tear covered with dressing. Left breast and groin area erythema, excoriation, and yeast present. Cleaned at this time. Right AC IV infusing without complications. Drinking bowel prep. Denies pain at this time. Denies needs. Call lightin reach.
--- NOTE | 2019-05-23 23:12 | NUR ---
Patient up to bedside commode for bowel movement at this time.
--- NOTE | 2019-05-24 00:20 | NUR ---
Resting in bed. Denies needs. Call light in reach.
[2019-05-24 03:47] VITALS: BP 123/79; PULSE 97
--- NOTE | 2019-05-24 06:28 | NUR ---
Patient bowel is greenish/clear. Has 1 cup of bowel prep to finish. Has been incontinent with each bowel movement. Cares provided each time. Denies needs this AM. Call light in reach.
--- NOTE | 2019-05-24 07:13 | NUR ---
Report given to ABHIJIT Gipson
[2019-05-24 07:20] LABS: BASO # 0.1 (0.0-0.2); BASO % 0.8 % (0.0-2.0); EOS # 0.2 (0.0-0.7); EOS % 2.3 % (0-4.0); GRAN # 7.3 (1.4-6.5); GRAN % 75.6 % (42.2-75.2); LYMPH % 9.9 % (20.0-51.0); MEAN CELL VOLUME 93 fl (80.0-100.0); MEAN CORPUSCULAR HGB CONC 30 g/dl (33.0-37.0); MEAN PLATELET VOLUME 8.6 fl (7.4-10.4); MONO % 10.7 % (1.7-9.3); PLATELET COUNT 153 K/mm3 (130-400); RED BLOOD COUNT 2.98 M/mm3 (4.10-5.30); REDCELL DISTRIBUTION WIDTH-CV 19.2 % (11.5-14.5)
[2019-05-24 07:22] LABS: HEMATOCRIT 27.8 % (37.0-47.0); HEMOGLOBIN 8.4 g/dl (12.5-16.0); MEAN CORPUSCULAR HEMOGLOBIN 28 pg (27.0-31.0)
[2019-05-24 07:27] VITALS: BP 116/74; PULSE 89; TEMP 97.8
[2019-05-24 07:43] LABS: ALBUMIN 3.3 gm/dL (3.5-5.0); BILIRUBIN,TOTAL 2.6 mg/dL (0.0-1.0); CALCIUM 6.6 mg/dL (8.4-10.2); CREATININE, serum 1.14 (0.52-1.25); MAGNESIUM 1.9 mg/dL (1.6-2.3); POTASSIUM 3.3 mmol/L (3.4-5.0); TOTAL PROTEIN 6.1 gm/dL (6.4-8.2)
[2019-05-24 08:02] LABS: INR 1.4 (0.8-3.0)
[2019-05-24 08:25] LABS: IRON,SERUM 45 ug/dL (35-150)
[2019-05-24 08:34] LABS: TOTAL IRON BINDING CAPACITY 304 ug/dL (265-497)
--- NOTE | 2019-05-24 10:08 | NUR ---
Seo Associate attended rounds with the team. Patient to continue working with Physical Therapy. Patient reports right ankle pain which was reviewed with Hospitalist. SW to continue to follow.
[2019-05-24 13:49] VITALS: BP 102/65; PULSE 75; TEMP 97.8
[2019-05-24 19:30] VITALS: BP 150/57; PULSE 90
[2019-05-24 23:41] VITALS: BP 124/67; PULSE 93
[2019-05-25 03:39] VITALS: BP 108/68; PULSE 96; TEMP 98.8
[2019-05-25 08:47] VITALS: BP 99/68; PULSE 92; TEMP 97.4
[2019-05-25 08:56] LABS: BASO # 0.1 (0.0-0.2); BASO % 0.8 % (0.0-2.0); EOS # 0.3 (0.0-0.7); EOS % 2.7 % (0-4.0); GRAN # 7.1 (1.4-6.5); GRAN % 76.8 % (42.2-75.2); LYMPH % 10.5 % (20.0-51.0); MEAN CELL VOLUME 94 fl (80.0-100.0); MEAN CORPUSCULAR HGB CONC 30 g/dl (33.0-37.0); MEAN PLATELET VOLUME 8.5 fl (7.4-10.4); MONO # 0.8 (0.1-0.6); MONO % 8.6 % (1.7-9.3); PLATELET COUNT 147 K/mm3 (130-400); RED BLOOD COUNT 3.29 M/mm3 (4.10-5.30); REDCELL DISTRIBUTION WIDTH-CV 18.9 % (11.5-14.5)
[2019-05-25 09:01] LABS: HEMATOCRIT 30.9 % (37.0-47.0); HEMOGLOBIN 9.2 g/dl (12.5-16.0); MEAN CORPUSCULAR HEMOGLOBIN 28 pg (27.0-31.0)
[2019-05-25 09:05] LABS: ALBUMIN 3.6 gm/dL (3.5-5.0); BILIRUBIN,TOTAL 2.4 mg/dL (0.0-1.0); CALCIUM 6.8 mg/dL (8.4-10.2); CREATININE, serum 0.93 (0.52-1.25); POTASSIUM 3.5 mmol/L (3.4-5.0); TOTAL PROTEIN 6.7 gm/dL (6.4-8.2)
[2019-05-25 11:53] VITALS: BP 116/93; PULSE 92; TEMP 97.8
[2019-05-25] MEDS ORDERED: FERROUS SU325 MG/TAB PO (14:36)
[2019-05-25] MEDS ORDERED: LEVAQUIN 2250 MG/TAB PO (14:37)
[2019-05-25] MEDS ORDERED: SYNTHROID0.1 MG/TAB PO (14:39)
[2019-05-25] MEDS ORDERED: ASPIRIN E.C. 8181 MG PO (14:39)
--- NOTE | 2019-05-25 15:00 | NUR ---
Fire Inspector met with patient to review recommendation for post acute rehab. SW presented Medicare.gov list of fdc facilities which include ratings along with patient choice form. Patient states her first preference is [facility] and second preference is [facility]. Patient provided signature on choice form and SW placed form in chart. Hospitalist put in IPR screen and DONNY faxed referral to Gail at [facility]. Gail contacted SW and advised they can accept referral. DONNY met with patient who states she has changed her mind and IPR would be her first preference and wants to wait on IPR screen results. SW was then contacted by Arminda IPR Director who states [facility] can accept patient and patient to discharge today. DONNY provided update to Gail at [facility] that patient went with other preference. DONNY met again with patient to present IM form. Patient reviewed and provided signature. SW placed IM in chart. No additional concerns at this time.
== END 2019-05-25 16:36 | DRG 378 ==
LOC: COL.ER 17:04 → MEDICAL 18:59
PROVIDERS: Emergency Medicine; Internal Medicine Gastroenterology; Physician Assistant; ADMIT Student in an Organized Health Care Education/Training Program
PROC: 0DB98ZX Excision of Duodenum, Via Natural or Artificial Opening Endoscopic, Diagnostic (ICD-10-PCS; principal; 2019-05-24 16:00)
PROC: 0DBL8ZZ Excision of Transverse Colon, Via Natural or Artificial Opening Endoscopic (ICD-10-PCS; 2019-05-24 16:00)
DX: K25.4 Chronic or unspecified gastric ulcer with hemorrhage (principal); E87.1 Hypo-osmolality and hyponatremia; N17.9 Acute kidney failure, unspecified; I13.0 Hypertensive heart and chronic kidney disease with heart failure and stage 1 through stage 4 chronic kidney disease, or unspecified chronic kidney disease; N39.0 Urinary tract infection, site not specified; E87.3 Alkalosis; I48.91 Unspecified atrial fibrillation; K44.9 Diaphragmatic hernia without obstruction or gangrene; K31.7 Polyp of stomach and duodenum; D12.3 Benign neoplasm of transverse colon; K57.30 Diverticulosis of large intestine without perforation or abscess without bleeding; Z96.652 Presence of left artificial knee joint; I50.9 Heart failure, unspecified; J44.9 Chronic obstructive pulmonary disease, unspecified; G47.33 Obstructive sleep apnea (adult) (pediatric); M19.90 Unspecified osteoarthritis, unspecified site; G89.29 Other chronic pain; D50.0 Iron deficiency anemia secondary to blood loss (chronic); K21.9 Gastro-esophageal reflux disease without esophagitis; E89.0 Postprocedural hypothyroidism; D69.6 Thrombocytopenia, unspecified; N18.9 Chronic kidney disease, unspecified; R79.1 Abnormal coagulation profile; E83.51 Hypocalcemia; E11.39 Type 2 diabetes mellitus with other diabetic ophthalmic complication; H42 Glaucoma in diseases classified elsewhere; N32.81 Overactive bladder; Z66 Do not resuscitate; E87.6 Hypokalemia; G43.909 Migraine, unspecified, not intractable, without status migrainosus; M79.7 Fibromyalgia; F32.9 Major depressive disorder, single episode, unspecified; Z88.8 Allergy status to other drugs, medicaments and biological substances; Z88.2 Allergy status to sulfonamides; Z88.1 Allergy status to other antibiotic agents; Z85.850 Personal history of malignant neoplasm of thyroid
CPT/HCPCS: OP; 99222-AI; 99233-AI; 99239; C9113; G0378; J0610; J2370; J2704; J3475; J7030; J7512; P9016

== ENCOUNTER 2019-05-25 16:06 | Inpatient (IN) | payer MEDICARE ==
[~2019-05-25] VITALS: Ht 154.9 cm; Wt 134.7 kg
--- NOTE | 2019-05-25 08:00 | NUR ---
Patient was a new admit from Medical today. She was incontinent of urine and required two assist to wipe and change her. Patient wears her own SCD's that cover her entire legs. It is her own machine. Patient wears CPAP at HS. Patient refused one of her Effexor's reporting that she has only been taking 75 mg once a day instead of the 150 mg, due to it causing her to be dizzy. Will discuss this med change with Dr. Lepe tomorrow. Will discuss her Desmopressin with Dr. Lepe tomorrow. Patient was oriented to IPR processes and was in a pleasent mood. Reported off to night nurse.
[~2019-05-25 16:06] MED LIST changes: +ASPIRIN E.C. 8181 MG PO; +LEVAQUIN 2250 MG/TAB PO; +NYAMYC100000 U/G TP; +SYNTHROID0.1 MG/TAB PO
[2019-05-25 17:17] VITALS: BP 116/93; PULSE 92; TEMP 97.8
[2019-05-25 18:00] VITALS: BP 116/93; PULSE 92; TEMP 97.8
--- NOTE | 2019-05-25 21:00 | NUR ---
PT RESTING IN BED. PLEASANT AND COOPERATIVE. MORBIDLY OBESE. HAS DIFFICULTY MOVING AROUND. PT HAS VERY POOR SKIN INTEGRITY. SKIN VERY FRAIL AND THIN. SEE ASSESSMENT FOR SKIN ISSUES. INCONTINENT OF URINE. SET UP FEMALE EXTERNAL CATHETER. CALL LIGHT IN REACH. BED ALARM SET.
[2019-05-26 06:02] VITALS: BP 110/63; PULSE 92; TEMP 97.8
[2019-05-26 16:33] VITALS: BP 123/80; PULSE 78; TEMP 97.6
--- NOTE | 2019-05-26 16:59 | NUR ---
DONNY met with the patient to complete initial intake, as the patient is new to [facility]. The patient lives in [place] with her 96-year-old mother. She states that her mother is independent at home and that her sister, Pam (ph#[phone]) and [id number], also live [place]. She reports independence with ADLs and has a cane, two walkers, and CPAP from [facility]. The patient's PCP is Dr. Hillary Juarez and she receives her medications at [facility]. She reports no difficulties obtaining her meds. The patient does not have advanced directives in EMR, but she states that she does have them completed and that Dr. Juarez's office should have a copy. DONNY to contact and request a copy from Dr. Juarez's office. The patient states that her sister, Pam, is her DPOA-HC. DONNY discussed setting up a family meeting. The patient contacted her sister on speaker phone. A family meeting with her sister and mother was scheduled for Wednesday, 05/29, by speaker phone. DONNY to inform IPR Director and will continue to follow.
--- NOTE | 2019-05-26 18:00 | NUR ---
Patient resting in med at this time. She attended all therapies today. Dr. Lepe saw patient this afternoon and agreed to have her only take one Effexor instead of two per day. He was okay with patient taking the Desmopressin. Patient refused her oxybutenin in the AM today. She wanted it this evening and would only take the 5 mg instead of the 10 mg that was ordered. see new orders for this med. Patient was incontinent of urine and placed an external catheter on patient due to issues of skin breakdown. Pannus area was cleaned, patted dry and desenex powder applied to area. Will continue to monitor. Reported off to night nurse.
--- NOTE | 2019-05-26 20:00 | NUR ---
PT RESTING IN BED. PLEASANT AND COOPERATIVE. MORBIDLY OBESE. SL FORGETFUL AT TIMES. SEE ASSESSMENT FOR YEAST INFECTION TREATED WITH DESENEX POWDER. WATCHING TV. BRUISING TO LT SHOULDER NOTED. TAKES TYLENOL FOR PAIN PRN. CALL LIGHT IN REACH. BED ALARM SET.
--- NOTE | 2019-05-26 20:18 | NUR ---
Patient has requested an Ensure for her evening meals. Dietary was to go and see her today. She did receive one ensure this shift.
--- NOTE | 2019-05-26 20:22 | NUR ---
SANDRAI: Update on Effexor Patient reported that she sees Dr. Baron and she had told this that taking 150 mg caused her to be dizzy, but Dr. Baron's office never changed the actual prescription for her. She has just been taking one 75 mg Q Day.
--- NOTE | 2019-05-26 21:31 | NUR ---
PT USING FEMALE EXTERNAL CATHETER FOR INCONTINENCE AND TO PROMOTE SKIN INTEGRITY. PT HAS OWN CPAP- AGREES TO USE IT WHEN SHE IS READY TO GOT TO BED. HAS OWN SCD'S FROM HOME. REFUSES TO WEAR TONIGHT. DENIES NEEDS AT THIS TIME.
[2019-05-27 04:51] VITALS: BP 123/77; PULSE 6; PULSE 88; TEMP 97.9
--- NOTE | 2019-05-27 15:29 | NUR ---
0730OT STAFF HERE TO WORK WITH PT. ASSISTED TO CHANGE PT. PT WAS SOAKED DESPITE THE OUTER CATHETER BEING USED. THIS WAS REMOVED AND PT WAS CHANGED. 0830PT ATE HER BREAKFAST. PT IS ABLE TO GET UP AND AMBULATE IN ROOM. SHEIS VERY SLOW, GAIT IS STEADY. 1200LUNCH BROUGHT UP AND GIVEN TO PT. PT WAS SITTING ON THE EDGE OF THE RECLINER. ASSISTED TO MOVE BACK IN THE CHAIR. 1430PT REQUESTED TO GET INTO BED. ASKED IF SHE WANTED TO CHANGE HER DEPENDS STATES NO SHE ISNT WET. MAX ASSIST TO GET LEGS INTO BED.
[2019-05-27 17:13] VITALS: BP 115/72; PULSE 72; TEMP 98.7
--- NOTE | 2019-05-27 21:18 | NUR ---
Pt doing ok. Alert and oriented with VSS. PM meds given with no issue. Patient does have yeast infection to groin folds. Powder applied. Patient was a x2 assist to bedside commode. Did not void or have BM. Patient assisted to bed. External catheter placed. Pt denies pain or concerns at this time. Call light within reach, will continue to monitor.
--- NOTE | 2019-05-27 23:33 | NUR ---
Pt refused to wear SCDs that she brought from home. Is on CPAP
[2019-05-28 05:13] VITALS: BP 142/99; PULSE 83; TEMP 97.7
--- NOTE | 2019-05-28 10:11 | NUR ---
PT TAKES 20 MINUTES TO GET FROM BED LAYING TO STANDING TO TRANSFER TO BSC. SHE NEEDS LOTS OF ENCOURAGEMENT TO DO THIS TASK. SHE DID HAAVE A LARGE GREENISH BM WITH UNMEASURED VOID. THE BANANA CATH LLWAS IN PLACE BUT WAS REMOVED DUE TO BEING SOILED. 450 ML OF DARK URINE HAD DRAINED FORM BLADDER. PT CONTINUES TO REPORT PAIN TO THE RIGHT ANKLE. PT IS UNABLE TO MOVE HER LEGS INTO BED. SHE IS A MAX ASSIST TO LIFT LEGS. PT WANTED HER OWN DEPENDS ON WITH PAD PLACED INSIDE THE DEPENDS. SHE WAS NOT ABLE TO LIFT HER LEGS WELL AND REQUIRED ASSIST TO GET OUT OF AND INTO BED. EXCORIATION UNDER THE BREAST IS NEARLY GONE THEY ARE LIGHTLY PINK IN PLACES. UNDER THE PANNUS ON THE RIGHT SIDE IS A CRACK IN THE SKIN AND THE GROIN IS PINK. PT IS SETTLED IN BED WITH CALL LIGHT NEAR.
--- NOTE | 2019-05-28 10:53 | NUR ---
PT DENIES PAIN OF NEEDS. RESTING IN BED WITH SCD'D ON WATCHING SNOW FALL. BREASTS ARE JUST PINK, PANNUS ON LEFT IS JUST FINE, RIGHT HAS A CRACK IN THE CREASE, GROIN IS BETTER PINKISH IN PLACES. DEPENDS AND PAD IN BRIEF. CALL LIGHT IN REACH.
[2019-05-28 16:57] VITALS: BP 125/65; PULSE 75; TEMP 98.8
--- NOTE | 2019-05-28 17:55 | NUR ---
PT HAS GOTTEN UP TWICE TODAY TO USE THE BR. SHE REQUIRES MOD TO MAAX TO GET HER LEGS OUT OF BED. SHE DOES WELL WHEN SHE USES HER WALKER. SHE HAD HER SCD'S O FOR ABOUT 4 HOURS THEN HAD NURSE TAKE THEM OFF.
--- NOTE | 2019-05-28 21:00 | NUR ---
DESPATCH CLERK SET UP EXTERNAL FEMALE CATHETER. URINE NOTED TO BE SL CLYDE AND STILL SLIGHTLY CLOUDY. DENIES FLANK PAIN, ALWAYS HAD URGENCY AND LEAKAGE. NO FEVER.
--- NOTE | 2019-05-29 01:30 | NUR ---
PT NOW READY FOR CPAP. REFUSES HER LEG INFLATION DEVICE. CALLIGHT IN REACH. BED ALARM SET.
--- NOTE | 2019-05-29 04:02 | NUR ---
CALLED BY RN TO SET UP CPAP AND PUT ON PT. BECAME BUSY AND WAS CALLED BACK BY RN SAYING SHE HOOKED UP CPAP AND PT IS ON AND ELAINE WELL AND THAT CPAP IS ON CORRECTLY AND DOESN'T NEED TO BE CHECKED.
[2019-05-29 05:32] VITALS: BP 110/66; PULSE 97; TEMP 98
--- NOTE | 2019-05-29 06:52 | NUR ---
PT HAS BEEN RESTING WELL WITH CPAP IN PLACE. NO COMPLAINTS NOTED. LAB HERE.
[2019-05-29 07:04] LABS: ALBUMIN 3.6 gm/dL (3.5-5.0); CALCIUM 7.5 mg/dL (8.4-10.2); CREATININE, serum 1.13 (0.52-1.25); MAGNESIUM 1.9 mg/dL (1.6-2.3); TOTAL PROTEIN 6.6 gm/dL (6.4-8.2)
[2019-05-29 07:10] LABS: MEAN CELL VOLUME 94 fl (80.0-100.0); MEAN CORPUSCULAR HGB CONC 30 g/dl (33.0-37.0); MEAN PLATELET VOLUME 8.6 fl (7.4-10.4); PLATELET COUNT 160 K/mm3 (130-400)
[2019-05-29 07:15] LABS: HEMATOCRIT 24.3 % (37.0-47.0); HEMOGLOBIN 7.3 g/dl (12.5-16.0); MEAN CORPUSCULAR HEMOGLOBIN 28 pg (27.0-31.0)
--- NOTE | 2019-05-29 08:12 | NUR ---
Report from ABHIJIT Barry. Pt was boosted up in bed for breakfast, takes pills a few at a time with thin liquids. Has her own BLE compression devices, states she wore them yesterday. Denies numbness or tingling or dizziness. Confirmed DNR. Has external catheter in place, discontinued when getting up with PT.
[2019-05-29 08:48] LABS: BAND 2 % (0-10); EOSINOPHIL 6 % (0-4); LYMPHOCYTE 13 % (20.0-51.0); METAMYELOCYTE 1 % (0-0); MYELOCYTE 1 % (0-0); NEUTROPHILS 75 % (42.0-75.2); PLATELET ESTIMATE NORMAL (NORMAL)
--- NOTE | 2019-05-29 13:00 | NUR ---
Pt to chair for lunch, tylenol for pain. PT here to see pt.
--- NOTE | 2019-05-29 13:30 | NUR ---
SW attended a family meeting with the patient and her mother (Lacy) and sister (Pam) on speaker phone. Also present was PT & OT. SW began by explaining the purpose of the meeting and SW's role. PT & OT then discussed the patient's progress and the team's recommendation for re-evaluation Wednesday. The patient and her family were in agreeance to this. The patient's mother and sister report that their goal for the patient is for her to keep active and to be able to get up and moving. The team answered all questions. SW to continue to follow.
[2019-05-29 15:40] VITALS: BP 118/81; PULSE 67; TEMP 97.4
--- NOTE | 2019-05-29 19:53 | NUR ---
Patient resting in bed during shift change report from day shift nurse, bed alarm on. No other needs reported.
--- NOTE | 2019-05-29 21:45 | NUR ---
Changed dressing to LFA, 5 x 1.2 cm skin tear with deficit, mepilex was adhered to wound/scab, soaked off with saline. Applied petroleum gauze and covered with telfa, secured with two overlapping mepilex dressings. dated.
--- NOTE | 2019-05-30 00:55 | NUR ---
REPORTS WILL HAVE TO CALL EQUIPMENT COMPANY REGARDING BLE COMPRESSION BOOTS DUE TO NOT FUNCTIONAL CURRENTLY, BOOTS REMOVED PRIOR TO HS PER PATIENT REQUEST. PATIENT AGREEABLE TO NO FEMALE EXTERNAL CATH AT THIS TIME, AGREED TO TRY FREQUENT INCONT PANTS CHECKS FOR PERICARE BEFORE APPLICATION OF EXTERNAL FEMALE CATH. NO SIGNS OF YEAST CURRENTLY, MIN RASH TO GROIN/ABD FOLDS AND SACRAL/COCCYX AREA. BED ALARM CONTINUES.
--- NOTE | 2019-05-30 02:02 | NUR ---
Resting quietly in bed, bed alarm on.
--- NOTE | 2019-05-30 02:27 | NUR ---
Adult incont brief, checked, dry, no changing required at this time. No other needs reported. Bed alarm engaged.
[2019-05-30 04:50] VITALS: BP 117/87; PULSE 74; TEMP 97.3
--- NOTE | 2019-05-30 06:20 | NUR ---
RESTING IN BED WITH EYES CLOSED, CPAP ON AND WORKING, DOES NOT AWAKEN AT THIS TIME WHEN ROOM ENTERED. BREATHING NONLABORED AND EVEN. BED ALARM ENGAGED.
--- NOTE | 2019-05-30 07:30 | NUR ---
Patient resting in bed and coughing. She reported that she chocked on her eggs this morning. Patient was moved from her bed to her chair so that she could be sitting up at a 90 degree angle when eating. Patient required a one assist with staff and took approximatly 20 minutes to mentaly and physically move from bed to recliner. Patient was incontinent of urine this morning and staff assisted with changing her. Will continue to monitor.
--- NOTE | 2019-05-30 07:48 | NUR ---
RESTING IN BED DURING SHIFT CHANGE REPORT GIVEN TO DAY SHIFT NURSE. BED ALARM ENGAGED.
[2019-05-30 16:00] VITALS: BP 129/77; PULSE 62; TEMP 97.1
--- NOTE | 2019-05-30 16:31 | NUR ---
Admission QIM scores were reviewed by the team. Code of 3 chosen for shower/bathe self was determined by team discussion to be the most usual performance before interventions for this patient during the assessment period.--Arminda Jenkins, PD
--- NOTE | 2019-05-30 19:18 | NUR ---
PATIENT RESTING QUIETLY IN BED DURING SHIFT CHANGE REPORT FROM DAY SHIFT NURSE, BED ALARM ENGAGED COMPRESSION BOOTS SLEEVES REMOVED FROM BLE PER PATIENT REQUEST. NO OTHER NEEDS REPORTED.
--- NOTE | 2019-05-30 19:18 | NUR ---
Patient attended all therapies, but did require staff to get her dressed this morning. She was not wanting to start so early. She states that she eats slow and needed more time. This will be communicated to therapy. Patient was a one assist to the commode today using walker and gait belt. Patient was able to pull her pants up and down with touch assist. She did require staff to replace pad in her brief. She was set up with her meals. Patient reported that her compression boots are not working well today. Patient will be calling to get the machine looked at. Reported off to night nurse.
--- NOTE | 2019-05-31 01:50 | NUR ---
RESTING IN BED QUIETLY, BREATHING NONLABORED AND EVEN, CPAP ON AND FUNCTIONING. BED ALARM ENGAGED.
[2019-05-31 04:00] VITALS: BP 165/68; PULSE 87; TEMP 97.2
--- NOTE | 2019-05-31 04:00 | NUR ---
RESTING IN BED QUIETLY, AWAKENS WITH NAME CALLED, DENIES ANY NEEDS, BED ALARM ON.
--- NOTE | 2019-05-31 05:44 | NUR ---
RESTING IN BED, AWAKENS WITH NAME CALLED, WEARING CPAP, BED ALARM ON, DENIES ANY NEEDS AT THIS TIME.
--- NOTE | 2019-05-31 09:58 | NUR ---
Patient working with therapy at this time. She ate her breakfast and was a one assist to the toilet this morning. She was continent all night. Given prn tylenol for shoulder and knee pain. Will continue to monitor.
[2019-05-31 10:51] VITALS: BP 112/89; PULSE 55; TEMP 97.2
--- NOTE | 2019-05-31 16:08 | NUR ---
Patient will be discharging on Jun 06 and appointments have been made. Patient was able to enjoy some children stopping by to sing to her this afternoon and she received a PlaySay card. Patient was seen by Dr. Lepe today and there were no new orders. Leg rash was discussed with Dr. Lepe no new orders at this time. Applied lotion to bilateral legs. Will continue to monitor.
--- NOTE | 2019-05-31 16:25 | NUR ---
DONNY met with the patient to present and review the IPR Team Conference Note. DONNY discussed the team's recommendation of a discharge for next Wednesday, 06/06, with home health for PT/OT/SN. The patient is in agreeance to this plan. She states that she did very well with PT today and was hopeful that if she continued to do well with therapy tomorrow, that she could maybe have a sooner discharge date. DONNY to update IPR Director, Arminda. The patient had [facility] prior to IPR. The patient chose to resume home health services through [facility]. DONNY contacted and faxed updates to [facility] and will continue to follow.
[2019-05-31 16:57] VITALS: BP 120/51; PULSE 67; TEMP 97.5
--- NOTE | 2019-05-31 20:00 | NUR ---
UP IN CHAIR DURING SHIFT CHANGE REPORT FROM DAY SHIFT NURSE. CHAIR ALARM ENGAGED, SEE MAR FOR TYLENOL GIVEN.
--- NOTE | 2019-05-31 20:10 | NUR ---
Patient attended all therapies today. Patient will be discharging on Wednesday with Home Health Services. She was a one person transfer touch assist with gait belt and walker today to bathroom and back. Patient was able to change her incontinent pad and pull pants up and down on her own, taking a long while, and requiring only touch assist at times. Dressing changed to left arm observing small drainage on vaseline bandage that was removed. Was yellow in color. Area was secured with vaseline gauze/non adherent pad and mepilex. Patient tolerated well. Will continue to monitor. Reported off to night nurse.
[2019-06-01 05:42] VITALS: BP 114/74; PULSE 65; TEMP 98.4
--- NOTE | 2019-06-01 08:18 | NUR ---
PATIENT RESTING IN BED DURING SHIFT CHANGE REPORT TO DAY SHIFT NURSE, BED ALARM ENGAGED.
--- NOTE | 2019-06-01 09:06 | NUR ---
Bedside report from ABHIJIT Steele. Pt sound asleep in bed, is slow to awaken, multiple cues given, had CPAP in place, set up for breakfast in bed. Toileted and dressing with BIOMEDICAL ELECTRONICS TECHNICIAN assist. Takes pills whole with water. Various skin areas irritated- Desenex powder will be applied to these. Tylenol for pain.
--- NOTE | 2019-06-01 12:31 | NUR ---
Pt to chair for lunch, c/o pain to rt shoulder and foot, wants to save last PRN tylenol dose for HS, providing ice pack for shoulder.
--- NOTE | 2019-06-01 12:32 | NUR ---
Pt c/o beef chunks too tough to chew. Called for extra gravy, received.
--- NOTE | 2019-06-01 15:40 | NUR ---
The patient is wanting to discharge on Wednesday. The team spoke to the patient about their recommendations of staying until Wednesday. The patient is still wanting to discharge on Wednesday. DONNY contacted and updated Isa at [facility]. SW to continue to follow.
--- NOTE | 2019-06-01 19:54 | NUR ---
Pt's LFA dressing fell off, applied new xeroform gauze, telfa, mepilex. Turned bed alarm on. Call lt in reach.
[2019-06-01 20:01] VITALS: BP 112/90; PULSE 64; TEMP 94.5
--- NOTE | 2019-06-01 21:00 | NUR ---
PT RESTING IN BED. WATCHING TV. NO COMPLAINTS. APPLIED HER SCD'S ON.SKIN CARE TO YEAST INFECTION UNDER BREASTS, PANNUS, GROIN, BEHIND KNEES. PT RELATES SH IS READY TO GO HOME ON WEDNESDAY. SHE SAYS SHE HAS DONE ALL THAT SHE CAN TO BE READY FOR HER HS MEDS YET. CALL LIGHT IN REACH. BED ALARM SET.
[2019-06-02 04:59] VITALS: BP 116/89; PULSE 90; TEMP 97.7
--- NOTE | 2019-06-02 08:18 | NUR ---
Bedside report from ABHIJIT Barry at 0650, pt was asleep in bed without CPAP or own SCDs, enc pt to stay awake for breakfast was coming soon. Arrived to administer morning meds and pt was still asleep in bed, awakened, pt took pills whole with thin liquids while sitting bedside. Yellow grippers in place. Dressing to LFA secured with coban around mepilex.
--- NOTE | 2019-06-02 12:34 | NUR ---
Pt made mod I in rm w/ walker. Ice pack to rt shoulder. Pt to chair for lunch.
--- NOTE | 2019-06-02 15:25 | NUR ---
DONNY met with the patient to follow up and review her discharge for tomorrow, 06/03, with home health services for PT/OT/SN from [facility]. The patient reports that she is doing well and ready to get home. She states that she promised her mother that she would get up earlier than she was prior to IPR and stay up and moving. The patient had no other questions or concerns for DONNY. DONNY presented and explained the IM form to the patient. The patient verbalized understanding, signed, and she was provided a copy. DONNY will need to fax the patient's discharge ordes to [facility] tomorrow. DONNY to continue to follow.
[2019-06-02 16:56] VITALS: BP 116/73; PULSE 78; TEMP 97.5
--- NOTE | 2019-06-02 20:00 | NUR ---
Report received. Assumed care for awake overnight counselor. Assessment complete. VS have remained stable. Plan of care discussed for this shift. Denies questions/concerns. C/O pain to left shoulder/neck-rating pain 4/10 on pain scale-described as constant ache. Tylenol given per dr diaz. Also provided with Heat pad. Denies needs. Encouraged to call for questions/concerns. Verbalizes understanding. Will monitor.
--- NOTE | 2019-06-02 20:37 | NUR ---
Report to ABHIJIT Castellanos, pt was in the bathroom. Tylenol for pain 8.5/10
[2019-06-03 05:47] VITALS: BP 124/85; PULSE 65; TEMP 98
[2019-06-03] MEDS ORDERED: DEMADEX10 MG PO (08:32)
--- NOTE | 2019-06-03 09:36 | NUR ---
Patient indepedent in room with walker. She will be discharged later today and currently does not have any questions.
--- NOTE | 2019-06-03 14:36 | NUR ---
Patient Health Summary, Discharge Summary and Home Meds printed and reviewed with patient. Stressed importance of follow up appointments. Called pharmacy of choice and reviewed medications. Patient called and had family member sisal picker meds for her since Pharmacy was closing at 1:00 PM today. Belongings gathered by Milagro & RN/Whitney including blue gown, shoes, night gown, circulation flow machine, dirty clothes from hamper, clothes from closet, medications, glasses, phone, neon glass blower and muro. Patient transported via wheelchair by [place] and seatbelted for ride home with mother and friend. Patient denied questions.
--- NOTE | 2019-06-03 15:50 | NUR ---
DONNY faxed DC to [facility]
--- NOTE | 2019-06-06 15:40 | NUR ---
Discharge QIM scores were reviewed by the team. Code of 5 chosen for sit to lying was determined by team discussion to be the most usual performance for this patient during the assessment period.--Arminda Jenkins, PD
== END 2019-06-03 13:40 | disposition home health service (06) | DRG 947 ==
PROVIDERS: ADMIT Internal Medicine
DX: R53.81 Other malaise (principal); K25.4 Chronic or unspecified gastric ulcer with hemorrhage; N39.0 Urinary tract infection, site not specified; E87.1 Hypo-osmolality and hyponatremia; E87.3 Alkalosis; D64.9 Anemia, unspecified; N18.9 Chronic kidney disease, unspecified; I12.9 Hypertensive chronic kidney disease with stage 1 through stage 4 chronic kidney disease, or unspecified chronic kidney disease; Z66 Do not resuscitate; I48.91 Unspecified atrial fibrillation; K44.9 Diaphragmatic hernia without obstruction or gangrene; M79.7 Fibromyalgia; G47.33 Obstructive sleep apnea (adult) (pediatric); K21.9 Gastro-esophageal reflux disease without esophagitis; E87.6 Hypokalemia; E78.5 Hyperlipidemia, unspecified; G43.909 Migraine, unspecified, not intractable, without status migrainosus; H40.9 Unspecified glaucoma; K57.90 Diverticulosis of intestine, part unspecified, without perforation or abscess without bleeding; E83.52 Hypercalcemia; N32.81 Overactive bladder; I89.0 Lymphedema, not elsewhere classified; E87.8 Other disorders of electrolyte and fluid balance, not elsewhere classified; B95.2 Enterococcus as the cause of diseases classified elsewhere; M25.571 Pain in right ankle and joints of right foot; Z79.52 Long term (current) use of systemic steroids; Z79.82 Long term (current) use of aspirin; Z85.850 Personal history of malignant neoplasm of thyroid; Z96.651 Presence of right artificial knee joint; Z90.710 Acquired absence of both cervix and uterus; Z91.81 History of falling; Z88.2 Allergy status to sulfonamides; Z88.8 Allergy status to other drugs, medicaments and biological substances
CPT/HCPCS: 99232-AI; 99239; J7512

== ENCOUNTER 2019-07-23 08:41 | Inpatient (IN) | payer MEDICARE ==
[~2019-07-23] VITALS: Ht 154.9 cm; Wt 131.2 kg
[2019-07-23] VITALS (696 sets, daily range): BP systolic 107–151; BP diastolic 70–110; PULSE 94–114; TEMP 97.4–97.8; O2SAT 77–100
[~2019-07-23 08:41] MED LIST changes: +DEMADEX10 MG PO
[2019-07-23 08:54] LABS: HEMOGLOBIN 10.3 g/dl (12.5-16.0); MEAN CELL VOLUME 98 fl (80.0-100.0); MEAN CORPUSCULAR HEMOGLOBIN 31 pg (27.0-31.0); MEAN CORPUSCULAR HGB CONC 31 g/dl (33.0-37.0); MEAN PLATELET VOLUME 8.3 fl (7.4-10.4); PLATELET COUNT 149 K/mm3 (130-400); RED BLOOD COUNT 3.34 M/mm3 (4.10-5.30); REDCELL DISTRIBUTION WIDTH-CV 21.2 % (11.5-14.5)
[2019-07-23 08:55] LABS: HEMATOCRIT 32.8 % (37.0-47.0)
[2019-07-23 09:00] LABS: INR 1.1 (0.8-3.0); PROTHROMBIN TIME 13.1 SECONDS (9.7-12.8)
[2019-07-23 09:01] LABS: ALANINE AMINOTRANSFERASE 17 U/L (9-52); ALBUMIN 4.7 gm/dL (3.5-5.0); ALKALINE PHOSPHATASE 295 U/L (50-136); ANION GAP 14 mmol/L (7-16); AST,SGOT 25 U/L (15-37); BILIRUBIN,TOTAL 1.7 mg/dL (0.0-1.0); BLOOD UREA NITROGEN 21 mg/dL (7-17); CALCIUM 8.4 mg/dL (8.4-10.2); CARBON DIOXIDE 26 mmol/L (22-30); CHLORIDE 99 mmol/L (98-107); CREATININE, serum 1.38 (0.52-1.25); GLUCOSE 127 mg/dL (74-106); POTASSIUM 4.2 mmol/L (3.4-5.0); SODIUM 138 mmol/L (137-145); TOTAL PROTEIN 7.8 gm/dL (6.4-8.2)
[2019-07-23 09:02] LABS: ARTERIAL BLD GAS O2 SATURATION 97.4 % (92-100); ARTERIAL BLD GAS TCO2 CT 24.1; ARTERIAL BLOOD GAS BASE EXCESS -2.5 (-2-2); ARTERIAL BLOOD GAS HCO3 22.8 meq/L (22-26); ARTERIAL BLOOD GAS PCO2 41.3 mmHg (35-45); ARTERIAL BLOOD GAS PO2 100.5 mmHg (80-100); ARTERIAL BLOOD GAS pH 7.36 (7.35-7.45)
[2019-07-23 09:11] LABS: BAND 34 % (0-10); EOSINOPHIL 1 % (0-4); LYMPHOCYTE 8 % (20.0-51.0); NEUTROPHILS 50 % (42.0-75.2); NUCLEATED RED BLOOD CELL 1 (0-6)
[2019-07-23 09:12] LABS: ANISOCYTOSIS 2+; PLATELET ESTIMATE NORMAL (NORMAL)
[2019-07-23 09:13] LABS: TROPONIN-I < 0.012 ng/mL (0.000-0.035)
[2019-07-23] MEDS ORDERED: FERRO-TIME325 MG PO (09:27)
[2019-07-23 09:41] LABS: PH 5 (5-8); SQUAMOUS EPITHELIAL None Seen /hpf; URINE APPEARANCE Turbid; URINE BACTERIA Many /hpf; URINE BILIRUBIN Negative (NEGATIVE); URINE BLOOD 3+ (NEGATIVE); URINE COLOR Yellow; URINE GLUCOSE Negative (NEGATIVE); URINE KETONE Negative (NEGATIVE); URINE LEUKOCYTE ESTERASE 2+ (NEGATIVE); URINE NITRATE Positive (NEGATIVE); URINE PROTEIN(semi-quant) 2+ (NEGATIVE); URINE RBC >50 /hpf; URINE UROBILINOGEN Negative (NEGATIVE)
--- NOTE | 2019-07-23 10:30 | NUR ---
Pt admitted to ICU bed 6 from ED at this time. Pt arrived via stretcher with respiratory therapy and BiPap support. Pt placed on cardiac cath technician upon arrival. Pt denies any pain or discomforts and reports that breathing is better. Dr. Conn, at beside upon Pt arrival to unit. Call light left within reach, bed in low position, will continue to monitor.
[2019-07-23 10:39] LABS: COLLECTION METHOD CATHETER
--- NOTE | 2019-07-23 13:00 | NUR ---
Shift assessment complete at this time. Plan of care reviewed at bedside with patient. Additional time taken to address any other needs or concerns.
--- NOTE | 2019-07-23 15:23 | NUR ---
Pt admitted to ICU bed 5 at this time from ED. Pt arrived via stretcher and was placed on relationship mgr upon arrival. Pt denies any pains or discomforts and tolerated transfer well. Dr. Conn notified of Pt's admission to unit.
--- NOTE | 2019-07-23 15:50 | NUR ---
Nitroglycerin discontinued per Dr. Sharif telephone order. Bumex gtt decreased to 0.5 mg/hr rate.
--- NOTE | 2019-07-23 16:00 | NUR ---
Shift reassessment complete at this time. No changes from previous assessment noted. Pt denies pain or any other discomfort at this time. Vitals stable. Bed in low position, call light within reach, will continue to monitor.
--- NOTE | 2019-07-23 19:20 | NUR ---
Bedside report given to ABHIJIT Hackett.
--- NOTE | 2019-07-23 21:06 | NUR ---
Patient family member brought in Desmopressin 0.1 mg tablets for patient as we do not have this in house and is important for patient care. Discussed with Sharon, Pharmacist, about whether we can give this tonight and then have pharmacy verify in the morning, she stated to verify with 2nd nurse for tonight and will be sent to pharmacy in the AM. ABHIJIT Gallardo verified correct dosing on bottle, will administer to patient.
[2019-07-24] VITALS (671 sets, daily range): BP systolic 102–128; BP diastolic 53–93; PULSE 52–120; TEMP 97.4–97.9; O2SAT 60–100
[2019-07-24 06:21] LABS: BASO # 0.1 (0.0-0.2); BASO % 0.7 % (0.0-2.0); EOS # 0.2 (0.0-0.7); EOS % 1.1 % (0-4.0); GRAN # 12.7 (1.4-6.5); GRAN % 85.7 % (42.2-75.2); LYMPH # 0.8 (1.2-3.4); LYMPH % 5.2 % (20.0-51.0); MEAN CELL VOLUME 98 fl (80.0-100.0); MEAN CORPUSCULAR HGB CONC 31 g/dl (33.0-37.0); MEAN PLATELET VOLUME 8.7 fl (7.4-10.4); MONO % 6.5 % (1.7-9.3); PLATELET COUNT 119 K/mm3 (130-400); RED BLOOD COUNT 3.06 M/mm3 (4.10-5.30); REDCELL DISTRIBUTION WIDTH-CV 21.2 % (11.5-14.5)
[2019-07-24 06:28] LABS: ALBUMIN 3.7 gm/dL (3.5-5.0); BILIRUBIN,TOTAL 1.5 mg/dL (0.0-1.0); CALCIUM 7.8 mg/dL (8.4-10.2); CREATININE, serum 1.12 (0.52-1.25); MAGNESIUM 1.7 mg/dL (1.6-2.3); PHOSPHOROUS 3.7 mg/dL (2.5-4.5); POTASSIUM 3.2 mmol/L (3.4-5.0); TOTAL PROTEIN 6.5 gm/dL (6.4-8.2)
[2019-07-24 06:40] LABS: HEMATOCRIT 29.9 % (37.0-47.0); HEMOGLOBIN 9.3 g/dl (12.5-16.0); MEAN CORPUSCULAR HEMOGLOBIN 30 pg (27.0-31.0)
--- NOTE | 2019-07-24 11:00 | NUR ---
NAIL ASSEMBLY MACHINE OPERATOR student met with the patient to complete initial intake. The patient lives in [place] with her 96-year old mother. The patient has a walker and receives home [facility] services through [facility] The patient's PCP is Dr. Juarez and patient receives medications from [facility]. The patient reports her mother does her grocery shopping. The patient does not have advance directives in the EMR but reports they are completed and designate her sister, Pam. PT/OT were ordered and patient is to tranfer to medical floor this day. client services administrator will continue to follow.
--- NOTE | 2019-07-24 14:12 | NUR ---
Report to Liang LACEY. Patient up to commode with therapy assist, attempting to have BM at this time.
--- NOTE | 2019-07-24 14:25 | NUR ---
Received report from ABHIJIT Guo.
--- NOTE | 2019-07-24 15:43 | NUR ---
Outboard Motorboat Operator met with patient to discuss post acute rehab. SW presented Medicare.gov list of Inpatient Rehab and Group Home Facilities in patient's geographic location. Patient states her first preference is [facility]. Patient unsure on second preference and states all she wants to do right now is order her supper. SW will follow up. DONNY contacted [employer] Director who will screen referral. SW to continue to follow.
--- NOTE | 2019-07-24 19:37 | NUR ---
Pt arrived to floor this afternoon fron the ICU, no C/O pain, med rec complete, VS remain stable.
--- NOTE | 2019-07-24 20:30 | NUR ---
Initial shift assessment done- alert/oriented, pleasant, watching some TV, no requests at this time, Tele on- afib with rate 90,s,, states has some pain to lowerlegs/neck-states this is chronic--Incontinent of large amount of urine- cleaned up/repositioned
[2019-07-25 03:32] VITALS: BP 102/58; PULSE 83; TEMP 98.5
--- NOTE | 2019-07-25 05:27 | NUR ---
Quiet night- slept for a few hours towards the morning- was given a tylenol x1 for leg/neck ache--has been incontinent of urine x3 tonight-
[2019-07-25 08:06] VITALS: BP 105/57; PULSE 96; TEMP 98.8
[2019-07-25 08:39] LABS: MEAN CELL VOLUME 99 fl (80.0-100.0); MEAN CORPUSCULAR HGB CONC 31 g/dl (33.0-37.0); MEAN PLATELET VOLUME 8.6 fl (7.4-10.4); PLATELET COUNT 113 K/mm3 (130-400); RED BLOOD COUNT 2.75 M/mm3 (4.10-5.30); REDCELL DISTRIBUTION WIDTH-CV 21.4 % (11.5-14.5)
[2019-07-25 08:50] LABS: CALCIUM 7.6 mg/dL (8.4-10.2); CREATININE, serum 0.99 (0.52-1.25); MAGNESIUM 1.6 mg/dL (1.6-2.3)
[2019-07-25 08:53] LABS: HEMATOCRIT 27.1 % (37.0-47.0); HEMOGLOBIN 8.5 g/dl (12.5-16.0); MEAN CORPUSCULAR HEMOGLOBIN 31 pg (27.0-31.0)
[2019-07-25 09:45] LABS: BAND 5 % (0-10); BASOPHIL 1 % (0-2); LYMPHOCYTE 6 % (20.0-51.0); NUCLEATED RED BLOOD CELL 1 (0-6)
[2019-07-25 09:50] LABS: ANISOCYTOSIS 1+; HYPOCHROMIA 1+; POIKILOCYTOSIS 2+
[2019-07-25 09:51] LABS: STOMATOCYTE 3+
[2019-07-25 09:56] LABS: MYELOCYTE 1 % (0-0); NEUTROPHILS 78 % (42.0-75.2); PLATELET ESTIMATE NORMAL (NORMAL)
--- NOTE | 2019-07-25 10:00 | NUR ---
Napping upon entry, some C/O minor pain, medications given, shift assessments complete, left Pt call light in reach, bed in lowest position.
[2019-07-25 11:21] VITALS: BP 103/57; PULSE 92; TEMP 98.5
--- NOTE | 2019-07-25 16:34 | NUR ---
Blanket Folder spoke with Arminda, [facility] Director who advised she would not be able to accept referral. SW met with patient to provide this update and discuss other placement options. Patient states her first preference would be [facility] and second preference would be [facility] [place]. SW contacted [facility] and [facility] then faxed referrals. SW was contacted by Gail at [facility] who advised they can accept referral. SW to continue to follow.
[2019-07-25 17:11] VITALS: BP 112/71; PULSE 71; TEMP 98.5
--- NOTE | 2019-07-25 18:40 | NUR ---
Pt resting in bed today, using the external female catheter with success, no C/O pain during the day, saturating good on room air, VS have remained stable.
--- NOTE | 2019-07-25 19:15 | NUR ---
Report given to ABHIJIT Mirza.
--- NOTE | 2019-07-25 20:35 | NUR ---
Patient assessed at this time. Alert and oriented x 4, and able to make needs known. Reports generalized pain all over, "the usual." Periphreal IV to right upper arm. Peripheral IV to left hand was out during assessment, and removed. LS CTA in upper lobes, diminished in lower. Denies SOB and dypsnea. Respirations even and unlabored. HRI. Telemetry in place: A-fib. Capillary refill less than 3 seconds. Non-tenting skin turgor. BSAx4. Abdomen soft and non-tender. 3+ edema BUE and BLE. Generalized edema. Purewick external catheter in place, with clear yellow urine. SCDs to BLE. Voices no questions, needs, or concerns at this time. Resting in bed with call light within reach.
[2019-07-25 20:39] VITALS: BP 97/61; PULSE 75; TEMP 97.7
[2019-07-26 00:26] VITALS: BP 102/51; PULSE 80; TEMP 98.7
[2019-07-26 03:10] VITALS: BP 94/50; PULSE 75; TEMP 98.8
--- NOTE | 2019-07-26 06:09 | NUR ---
Patient has been resting in bed with call light within reach. External female catheter CDI. Changed around 0100. Clear yellow urine output. Voices no questions, needs, or concerns at this time. Call light is within reach.
[2019-07-26 06:26] LABS: BASO # 0.1 (0.0-0.2); BASO % 0.6 % (0.0-2.0); EOS # 0.2 (0.0-0.7); EOS % 1.7 % (0-4.0); GRAN # 9.7 (1.4-6.5); GRAN % 75.9 % (42.2-75.2); LYMPH # 1.3 (1.2-3.4); MEAN CELL VOLUME 99 fl (80.0-100.0); MEAN CORPUSCULAR HGB CONC 30 g/dl (33.0-37.0); MEAN PLATELET VOLUME 8.9 fl (7.4-10.4); MONO # 1.1 (0.1-0.6); MONO % 8.3 % (1.7-9.3); PLATELET COUNT 120 K/mm3 (130-400); RED BLOOD COUNT 2.66 M/mm3 (4.10-5.30); REDCELL DISTRIBUTION WIDTH-CV 21.2 % (11.5-14.5)
[2019-07-26 06:33] LABS: HEMATOCRIT 26.4 % (37.0-47.0); MEAN CORPUSCULAR HEMOGLOBIN 30 pg (27.0-31.0)
[2019-07-26 06:45] LABS: CALCIUM 7.4 mg/dL (8.4-10.2); CREATININE, serum 0.96 (0.52-1.25); MAGNESIUM 2.1 mg/dL (1.6-2.3); POTASSIUM 3.6 mmol/L (3.4-5.0)
[2019-07-26 07:30] VITALS: BP 115/69; PULSE 78; TEMP 97.8
[2019-07-26 08:46] LABS: PATHOLOGY DIFF REVIEW OK
--- NOTE | 2019-07-26 10:32 | NUR ---
Patient was tranferred from bed to the chair. Patient tolerated the transfer well. She is A/O. Patient complained of pain to the right shoulder. she said it is a chronic pain from arthritis. Patient is currently resting in her chair.
[2019-07-26 11:44] VITALS: BP 112/68; PULSE 77; TEMP 97.9
[2019-07-26 16:06] VITALS: BP 118/74; PULSE 70; TEMP 98
[2019-07-26 20:17] VITALS: BP 108/76; PULSE 63; TEMP 97.9
--- NOTE | 2019-07-26 21:10 | NUR ---
Patient assessed at this time. Alert and oriented x 4, and able to make needs known. Denies having pain and discomfort. Peripheral IV to right AC. Denies SOB and dypsnea. LS CTA in upper lobes, diminished lower lobes. Respirations even and unlabored. HRI. Tele: a-fib. Capillary refill less than 3 seconds. Non-tenting skin turgor. BSAx4. Abdomen soft and non-tender. 2+ edema RUE. 1+ LUE. 3+ BLE. External female catheter in place, with clear, jaskaran yellow urine. Voices no questions, needs, or concerns at this time. Call light is within reach.
[2019-07-27 00:34] VITALS: BP 104/51; PULSE 72; TEMP 98.4
--- NOTE | 2019-07-27 03:00 | NUR ---
Patient assisted to bedpan and had medium bowel movement. New purewick catheter placed at this time.
[2019-07-27 04:00] VITALS: BP 101/48; PULSE 76; TEMP 97.3
--- NOTE | 2019-07-27 05:48 | NUR ---
Patient voices no questions, needs, or concerns at this time. Patient has been wearing CPAP tonight. Resting in bed with call light within reach.
[2019-07-27 06:18] LABS: MEAN CELL VOLUME 99 fl (80.0-100.0); MEAN CORPUSCULAR HGB CONC 31 g/dl (33.0-37.0); MEAN PLATELET VOLUME 8.9 fl (7.4-10.4); PLATELET COUNT 115 K/mm3 (130-400); RED BLOOD COUNT 2.73 M/mm3 (4.10-5.30); REDCELL DISTRIBUTION WIDTH-CV 20.4 % (11.5-14.5)
[2019-07-27 06:19] LABS: CALCIUM 7.4 mg/dL (8.4-10.2); CREATININE, serum 0.95 (0.52-1.25); POTASSIUM 4.1 mmol/L (3.4-5.0)
[2019-07-27 06:28] LABS: HEMOGLOBIN 8.4 g/dl (12.5-16.0); MEAN CORPUSCULAR HEMOGLOBIN 31 pg (27.0-31.0)
--- NOTE | 2019-07-27 06:55 | NUR ---
Report given to day shift nurse.
[2019-07-27 07:35] LABS: BAND 15 % (0-10); LYMPHOCYTE 14 % (20.0-51.0); METAMYELOCYTE 4 % (0-0); MYELOCYTE 2 % (0-0); NEUTROPHILS 60 % (42.0-75.2); NUCLEATED RED BLOOD CELL 2 (0-6); PLATELET ESTIMATE DECREASED (NORMAL)
[2019-07-27 07:36] LABS: ANISOCYTOSIS 2+
[2019-07-27] MEDS ORDERED: CARDIZEM 60MG T60 MG PO (09:05)
[2019-07-27] MEDS ORDERED: ALDACTONE 25MG25 M1 PO (09:06)
[2019-07-27] MEDS ORDERED: LASIX 40MG TABL40 MG PO (09:07)
[2019-07-27] MEDS ORDERED: CARDIZEM CD 18180 MG PO (09:12)
[2019-07-27 09:29] VITALS: BP 117/56; PULSE 60; TEMP 98.5
--- NOTE | 2019-07-27 11:12 | NUR ---
Patient is resting in bed. She complained of tiredness after working with PT. Patient has been informed about her discharge to [facility].
[2019-07-27 12:09] VITALS: BP 118/68; PULSE 74; TEMP 97.4
[2019-07-27 12:23] VITALS: BP 118/68; PULSE 74; TEMP 97.4
--- NOTE | 2019-07-27 13:20 | NUR ---
Dining Room Busser attended clinical rounds with the team and patient to discharge today to her first preference, [facility]. DONNY contacted [facility] to notify them and thank them for reviewing referral. DONNY contacted Gail at [facility] and faxed updates. DONNY and Gail set up transportation time for 1200. Patient requested later time so transportation was moved to 1330. DONNY provided transport time to RN. Patient also requested room with a view of the pond once over at [facility]. DONNY provided this request to Gail at [facility]. DONNY presented and explained IM form to patient who then verbalized understanding and provided signature. DONNY placed form on chart. DONNY faxed discharge orders to Gail. No additional needs at this time.
--- NOTE | 2019-07-27 13:58 | NUR ---
Patient has been discharged to [facility]. Medication's ( Biotene, Dorzolamide X 2, Latanaprost x2, Timoptic, Brimonidine x2) Patient was transferred down to the vehicle by [facility] transporter. Patient was alert and oriented at time of discharge.
== END 2019-07-27 13:50 | DRG 291 ==
LOC: COL.ER 08:41 → ICU 09:11 → MEDICAL 07-24 15:37
PROVIDERS: Emergency Medicine; Hospitalist; Physician Assistant; ADMIT Family Medicine
PROC: 5A09457 Assistance with Respiratory Ventilation, 24-96 Consecutive Hours, Continuous Positive Airway Pressure (ICD-10-PCS; principal; 2019-07-23)
DX: I13.0 Hypertensive heart and chronic kidney disease with heart failure and stage 1 through stage 4 chronic kidney disease, or unspecified chronic kidney disease (principal); J96.01 Acute respiratory failure with hypoxia; J18.9 Pneumonia, unspecified organism; I50.33 Acute on chronic diastolic (congestive) heart failure; I16.1 Hypertensive emergency; N39.0 Urinary tract infection, site not specified; G47.33 Obstructive sleep apnea (adult) (pediatric); Z96.651 Presence of right artificial knee joint; I27.20 Pulmonary hypertension, unspecified; I08.1 Rheumatic disorders of both mitral and tricuspid valves; I50.9 Heart failure, unspecified; M79.7 Fibromyalgia; I16.0 Hypertensive urgency; E83.42 Hypomagnesemia; D69.6 Thrombocytopenia, unspecified; E66.9 Obesity, unspecified; N18.3 Chronic kidney disease, stage 3 (moderate); I48.91 Unspecified atrial fibrillation; E87.6 Hypokalemia; Z90.710 Acquired absence of both cervix and uterus; Z88.2 Allergy status to sulfonamides
CPT/HCPCS: 99222-AI; 99231-AI; 99233-AI; 99239; A4216; J0456; J0696; J1940; J2543; J3475; J7030; J7050; J7512

== ENCOUNTER → 2019-07-31 | Outpatient (CLI) | payer MEDICARE ==
[~2019-07-31] MED LIST changes: +ALDACTONE 25MG25 M1 PO; +CARDIZEM 60MG T60 MG PO; +CARDIZEM CD 18180 MG PO; +FERRO-TIME325 MG PO; +LASIX 40MG TABL40 MG PO
[2019-07-31 11:02] LABS: CREATININE, serum 1.22 (0.52-1.25); POTASSIUM 3.8 mmol/L (3.4-5.0)
== END ==
LOC: ZCOL.LAB 10:49
PROVIDERS: Family Medicine
DX: E87.6 Hypokalemia (principal); I50.9 Heart failure, unspecified

== ENCOUNTER 2019-12-16 19:28 | Inpatient (IN) | payer MEDICARE ==
[~2019-12-16] VITALS: Ht 154.9 cm; Wt 102.1 kg
[2019-12-16 20:05] LABS: HEMOGLOBIN 10.8 g/dl (12.5-16.0); MEAN CELL VOLUME 97 fl (80.0-100.0); MEAN CORPUSCULAR HEMOGLOBIN 33 pg (27.0-31.0); MEAN CORPUSCULAR HGB CONC 34 g/dl (33.0-37.0); MEAN PLATELET VOLUME 8.8 fl (7.4-10.4); PLATELET COUNT 125 K/mm3 (130-400); RED BLOOD COUNT 3.31 M/mm3 (4.10-5.30); REDCELL DISTRIBUTION WIDTH-CV 15.2 % (11.5-14.5)
[2019-12-16 20:07] LABS: ALANINE AMINOTRANSFERASE 45 U/L (4-34); ALBUMIN 3.5 gm/dL (3.5-5.0); ALKALINE PHOSPHATASE 188 U/L (50-136); ANION GAP 13 mmol/L (7-16); AST,SGOT 47 U/L (15-37); BILIRUBIN,TOTAL 1.6 mg/dL (0.0-1.0); BLOOD UREA NITROGEN 68 mg/dL (7-17); CALCIUM 8.8 mg/dL (8.4-10.2); CARBON DIOXIDE 22 mmol/L (22-30); CHLORIDE 98 mmol/L (98-107); CREATININE, serum 1.72 (0.52-1.25); GLUCOSE 97 mg/dL (74-106); POTASSIUM 3.9 mmol/L (3.4-5.0); SODIUM 132 mmol/L (137-145); TOTAL PROTEIN 6.5 gm/dL (6.4-8.2)
[2019-12-16 20:09] LABS: INR 1.1 (0.8-3.0); PROTHROMBIN TIME 11.9 SECONDS (9.7-12.8)
[2019-12-16 20:09] LABS: ARTERIAL BLD GAS O2 SATURATION 94.8 % (92-100); ARTERIAL BLD GAS TCO2 CT 19.6; ARTERIAL BLOOD GAS BASE EXCESS -4.7 (-2-2); ARTERIAL BLOOD GAS HCO3 18.7 meq/L (22-26); ARTERIAL BLOOD GAS PCO2 29.5 mmHg (35-45); ARTERIAL BLOOD GAS PO2 78.2 mmHg (80-100); ARTERIAL BLOOD GAS pH 7.42 (7.35-7.45)
[2019-12-16 20:12] LABS: HEMATOCRIT 32.2 % (37.0-47.0)
[2019-12-16 20:17] LABS: TROPONIN-I < 0.012 ng/mL (0.000-0.035)
[2019-12-16] MEDS ORDERED: ROXICODONE 55 MG/TAB PO (20:35)
[2019-12-16] MEDS ORDERED: MILK OF MA400 MG/52 PO (20:37)
[2019-12-16] MEDS ORDERED: LASIX 40MG TABL40 MG PO (20:39)
[2019-12-16] MEDS ORDERED: DEBROX OT (20:40)
[2019-12-16] MEDS ORDERED: ALDACTONE 25MG25 M1 PO (20:41)
[2019-12-16] MEDS ORDERED: ALBUTEROL0.83 MG/ML IH (20:44)
[2019-12-16 21:08] LABS: BAND 23 % (0-10); LYMPHOCYTE 4 % (20.0-51.0); NEUTROPHILS 69 % (42.0-75.2); PLATELET ESTIMATE NORMAL (NORMAL)
[2019-12-16 22:28] LABS: COLLECTION METHOD CATHETER
[2019-12-16 22:38] LABS: MUCOUS Present /lpf; PH 6 (5-8); SQUAMOUS EPITHELIAL None Seen /hpf; URINE APPEARANCE Hazy; URINE BACTERIA Rare /hpf; URINE BILIRUBIN Negative (NEGATIVE); URINE BLOOD Negative (NEGATIVE); URINE COLOR Yellow; URINE GLUCOSE Negative (NEGATIVE); URINE KETONE Negative (NEGATIVE); URINE LEUKOCYTE ESTERASE 3+ (NEGATIVE); URINE NITRATE Negative (NEGATIVE); URINE PROTEIN(semi-quant) Negative (NEGATIVE); URINE RBC None Seen /hpf; URINE UROBILINOGEN Negative (NEGATIVE)
[2019-12-17] VITALS (927 sets, daily range): BP systolic 70–121; BP diastolic 30–87; PULSE 70–108; TEMP 98–98.7; O2SAT 72–100
[2019-12-17] MEDS ORDERED: NAPROSYN 2250 MG/TAB PO (00:12)
[2019-12-17] MEDS ORDERED: VITAMIN D PO (00:46)
--- NOTE | 2019-12-17 02:08 | NUR ---
Patient arrived from ER to ICU around midnight. Alert and oriented x 4, and able to make needs known. Reports chronic pain to back/shoulders. Peripheral to left AC and right FA. Denies having SOB and dyspnea. On room air. LS CTA in upper lobes, diminished in lower lobes. Respirations even and unlabored. HRR. Capillary refill less than 3 seconds. Non-tenting skin turgor. BSAx4. Abdomen soft and non-tender. Indwelling jurado catheter with dark yellow, clear urine. Patient had been incontinent of stool and perineal hygiene care and catheter care was provided. Redness/excoriation to coccyx/sacrum. Mepilex applied for protection. Edema BLE. Voiced that she still needed her bedtime medications, and was hungry. After completing med rec, called and talked to Dr. Hays. Went over med rec with , and updated MAR with medications he wanted to continue for now. This nurse had spoken with patient, and she has a DNR status, order obtained for patient's DNR status. Order received to change CL diet to AHA. Lab orders received for the morning. Went over assessment of patient. Order to change fluids to NS at 75 ml/hr. Asked about CPAP per patient, do not continue for tonight. Lactic rechecked, increased. Telehealth called and given update on patient. Stated that they added on some labs for the morning as well as a steroid. This nurse asked about fluids since Lactic increased. Order changed to NS to run at 150.
--- NOTE | 2019-12-17 06:45 | NUR ---
When patient arrived from ER, Levophed was running at 0.1 mcg/kg/min. At this time, Levophed is running at 0.31 mcg/kg/min. Voices no questions, needs, or concerns at this time. Is on oxygen at 3 L/min via oxymask at this time due to patient not having CPAP. Resting in bed with call light within reach.
--- NOTE | 2019-12-17 08:00 | NUR ---
Shift assessment complete at this time. Plan of care reviewed at bedside with patient. Additional time taken to address any other needs or concerns. Vitals stable at this time. Pt reports chronic back pain at 7/10 severity. Bed in low position, call light within reach, will continue to monitor.
[2019-12-17 08:52] LABS: HEMOGLOBIN 11.4 g/dl (12.5-16.0); MEAN CELL VOLUME 99 fl (80.0-100.0); MEAN CORPUSCULAR HEMOGLOBIN 33 pg (27.0-31.0); MEAN CORPUSCULAR HGB CONC 33 g/dl (33.0-37.0); MEAN PLATELET VOLUME 9.1 fl (7.4-10.4); PLATELET COUNT 150 K/mm3 (130-400); RED BLOOD COUNT 3.48 M/mm3 (4.10-5.30); REDCELL DISTRIBUTION WIDTH-CV 15.3 % (11.5-14.5)
[2019-12-17 08:54] LABS: HEMATOCRIT 34.3 % (37.0-47.0)
[2019-12-17 09:05] LABS: ALBUMIN 3.1 gm/dL (3.5-5.0); ALKALINE PHOSPHATASE 152 U/L (50-136); ANION GAP 12 mmol/L (7-16); AST,SGOT 53 U/L (15-37); BILIRUBIN,TOTAL 2.8 mg/dL (0.0-1.0); BLOOD UREA NITROGEN 66 mg/dL (7-17); CARBON DIOXIDE 21 mmol/L (22-30); CHLORIDE 97 mmol/L (98-107); CREATININE, serum 1.79 (0.52-1.25); GLUCOSE 134 mg/dL (74-106); POTASSIUM 4.6 mmol/L (3.4-5.0); SODIUM 130 mmol/L (137-145)
[2019-12-17 09:38] LABS: THYROID STIMULATING HORMONE < 0.015 uIU/mL (0.465-4.680)
[2019-12-17 10:55] LABS: ALANINE AMINOTRANSFERASE 49 U/L (4-34)
--- NOTE | 2019-12-17 12:00 | NUR ---
Pt resting in bed. Reports constant chronic back pain that is not being relieved by scheduled tylenol administration. Will contact provider for further orders and evaluation of pain management. Vitals stable at this time while on Levophed gtt. Pt denies any other complaints or concerns at this time. Bed in low position, call light within reach, will continue to monitor.
--- NOTE | 2019-12-17 16:00 | NUR ---
Pt resting in bed. Reports chronic back pain is improving after previous administration of PRN [place]. Denies any other complaints or concerns at this time. Vitals stable while on levophed gtt. Bed in low position, call light within reach, will continue to monitor.
[2019-12-18] VITALS (441 sets, daily range): BP systolic 98–136; BP diastolic 59–97; PULSE 87–113; TEMP 97.3–98.7; O2SAT 72–100
--- NOTE | 2019-12-18 01:30 | NUR ---
Patient heard moaning repeatedly from room. This nurse checked on patient and patient reported lower back pain. Unable to give a number to rate pain but continued moaning with facial grimacing. PRN [place] administered at this time. Will continue to monitor.
--- NOTE | 2019-12-18 03:25 | NUR ---
Resting quietly in bed with eyes shut; no concerns at this time.
[2019-12-18 05:32] LABS: HEMOGLOBIN 10.6 g/dl (12.5-16.0); MEAN CELL VOLUME 98 fl (80.0-100.0); MEAN CORPUSCULAR HEMOGLOBIN 33 pg (27.0-31.0); MEAN CORPUSCULAR HGB CONC 34 g/dl (33.0-37.0); MEAN PLATELET VOLUME 9.7 fl (7.4-10.4); PLATELET COUNT 95 K/mm3 (130-400); RED BLOOD COUNT 3.22 M/mm3 (4.10-5.30); REDCELL DISTRIBUTION WIDTH-CV 15.3 % (11.5-14.5)
[2019-12-18 05:35] LABS: HEMATOCRIT 31.4 % (37.0-47.0)
[2019-12-18 05:40] LABS: BILIRUBIN,TOTAL 2.2 mg/dL (0.0-1.0); CALCIUM 7.1 mg/dL (8.4-10.2); CREATININE, serum 1.67 (0.52-1.25); POTASSIUM 4.2 mmol/L (3.4-5.0); TOTAL PROTEIN 5.8 gm/dL (6.4-8.2)
[2019-12-18 07:35] LABS: BAND 21 % (0-10); LYMPHOCYTE 2 % (20.0-51.0); METAMYELOCYTE 10 % (0-0); NEUTROPHILS 65 % (42.0-75.2)
[2019-12-18 07:37] LABS: ANISOCYTOSIS 1+; PLATELET ESTIMATE DECREASED (NORMAL)
[2019-12-18 08:53] LABS: SODIUM 127 mmol/L (137-145)
--- NOTE | 2019-12-18 10:42 | NUR ---
SW met with the patient to complete initial intake. The patient lives in [place] with her 96 year old mother, Lacy. The patient has a walker and CPAP. The patient receives CPAP supplies from [facility]. The patient's PCP is Dr. Juarez and patient has medications delivered from [facility]. The patient does not have advanced directives in the EMR but states they are completed and designate her sister, Pam ([phone]). SW attempted to contact Pam to inquire about DPOA-HC paperwork, left message. The patient states she has no children and no other siblings. SW contacted PT and they recommend post acute rehab. SW presented the patient with Medicare.gov's list of post acute rehab facilities in [place]. [facility] and second [facility]. SW faxed referrals. Will continue to monitor.
--- NOTE | 2019-12-18 11:57 | NUR ---
Vancomycin Initial Dosing Pharmacy Note Ordering provider: Valentin Hays MD Indication/duration: empiric, 7 days LABS: SCr 1.6, CrCl~33, GFR 30 Recommendation: Will give Vancomycin 2 gm IV x1 loading dose, then Vancomycin 1.5 gm IV q24h. Pharmacy will continue to monitor and check a Vancomycin trough on 12/21/19. Loading dose: 2 grams Maintenance dose: 1.5 grams every 24 hours Trough goal: 15-20 ug/mL
--- NOTE | 2019-12-18 14:56 | NUR ---
Gail from [facility] reports they can accept the patient for post acute rehab as long as her pain is controlled and her WBC is lower. Will continue to follow.
[2019-12-18 15:59] LABS: URINE HOURS (UPEP) 24 (())
[2019-12-18 17:43] LABS: PROCALCITONIN 14.27 ng/mL (0.00-0.09)
--- NOTE | 2019-12-18 21:00 | NUR ---
PT sitting up in bed, moaning and groaning, stated that the cords resting on her skin were hurting her. Tylenol administered for pain, PT refused repositioning. PT complaining that she cannot reach her call light, reminded that it is in her hand. PT encouraged to feed herself and reinformed of how to use the call light since after asking RT to press the TV button for her despite the remote already being in her hand. PT reminded that she will be going to rehab soon and will need to attempt to try her activities of daily living.
[2019-12-19] VITALS (467 sets, daily range): BP systolic 101–138; BP diastolic 68–95; PULSE 86–113; TEMP 97.6–99; O2SAT 74–100
[2019-12-19 04:47] LABS: T3 FREE (TRI-IODOTHYRONINE) <1.0 pg/mL (())
[2019-12-19 05:50] LABS: MEAN CORPUSCULAR HGB CONC 32 g/dl (33.0-37.0); MEAN PLATELET VOLUME 9.4 fl (7.4-10.4); PLATELET COUNT 59 K/mm3 (130-400); RED BLOOD COUNT 2.64 M/mm3 (4.10-5.30); REDCELL DISTRIBUTION WIDTH-CV 15.3 % (11.5-14.5)
[2019-12-19 05:53] LABS: HEMATOCRIT 27.4 % (37.0-47.0); HEMOGLOBIN 8.8 g/dl (12.5-16.0); MEAN CELL VOLUME 104 fl (80.0-100.0); MEAN CORPUSCULAR HEMOGLOBIN 33 pg (27.0-31.0)
[2019-12-19 05:56] LABS: ALBUMIN 2.6 gm/dL (3.5-5.0); BILIRUBIN,TOTAL 1.7 mg/dL (0.0-1.0); CALCIUM 6.7 mg/dL (8.4-10.2); CREATININE, serum 1.54 (0.52-1.25); POTASSIUM 3.7 mmol/L (3.4-5.0); TOTAL PROTEIN 5.4 gm/dL (6.4-8.2)
[2019-12-19 06:11] LABS: BAND 18 % (0-10); LYMPHOCYTE 1 % (20.0-51.0); NEUTROPHILS 80 % (42.0-75.2); PLATELET ESTIMATE DECREASED (NORMAL)
[2019-12-19 08:29] LABS: ARTERIAL BLD GAS O2 SATURATION 96.8 % (92-100); ARTERIAL BLD GAS TCO2 CT 18.7; ARTERIAL BLOOD GAS BASE EXCESS -5.3 (-2-2); ARTERIAL BLOOD GAS HCO3 17.9 meq/L (22-26); ARTERIAL BLOOD GAS PCO2 26.9 mmHg (35-45); ARTERIAL BLOOD GAS PO2 92.6 mmHg (80-100); ARTERIAL BLOOD GAS pH 7.44 (7.35-7.45)
--- NOTE | 2019-12-19 11:24 | NUR ---
Geremias from [facility] reports they can accept the patient. DONNY attended clinical rounds with the team. Informed hospitalist the patient will need a Covid test for placement. The order will be place once a solid discharge date is determined. The patient's sister, Pam contacted DONNY. She states she brought a phone for the patient, via ER. The patient did receive her phone. Pam would like to get an update from the nurse or hospitalist. DONNY informed hospitalist and provided her phone number. DONNY inquired about the DPOA- paperwork. Pam will contact the manager printing to get a copy of the paperwork then have it faxed here to this hospital. Will continue to follow.
--- NOTE | 2019-12-19 13:17 | NUR ---
DONNY received advanced directives via fax from the patient's sister/DPOA-HC, Pam Cheng. DONNY placed them in the chart. DONNY contacted Pam to inform her that the forms were received, left message. Will continue to monitor.
--- NOTE | 2019-12-19 14:28 | NUR ---
DONNY faxed updates to Gail with [facility] and to Geremias at [facility].
--- NOTE | 2019-12-19 19:46 | NUR ---
Report given to Clari RN at 1920, patient transfered to medical unit in bed with belongings, eye gtts, and chart.
[2019-12-19 21:50] LABS: URIN CONCENTRATION 24HR (UPEP) 39 mg/dL (())
[2019-12-20] VITALS (7 sets, daily range): BP systolic 86–133; BP diastolic 51–95; PULSE 87–120; TEMP 97.7–98.5
--- NOTE | 2019-12-20 00:48 | NUR ---
Pt assessment completed, charted, alert, partially oriented, roomair. Generalized edema over her body. Meds provided as per MAR, PRN pain meds provided. I/V is flushed without complications. No N/V/D, pain, numbness, tingling as per pt. Helped to put cpap, settled on bed, call light on reach. No further needs at this time.
--- NOTE | 2019-12-20 06:37 | NUR ---
Pt slept on and off through out the night. Changed position, changed brief and applied mepilex on her coccyx area. Pt yells when we touch her body, provided prn pain meds after her position change. Morning meds provided, no further needs at this time.
[2019-12-20 06:45] LABS: MEAN CORPUSCULAR HGB CONC 34 g/dl (33.0-37.0); PLATELET COUNT 70 K/mm3 (130-400); RED BLOOD COUNT 2.54 M/mm3 (4.10-5.30); REDCELL DISTRIBUTION WIDTH-CV 15.1 % (11.5-14.5)
[2019-12-20 07:00] LABS: HEMATOCRIT 24.4 % (37.0-47.0); HEMOGLOBIN 8.3 g/dl (12.5-16.0); MEAN CELL VOLUME 96 fl (80.0-100.0); MEAN CORPUSCULAR HEMOGLOBIN 33 pg (27.0-31.0)
[2019-12-20 07:03] LABS: ALBUMIN 2.5 gm/dL (3.5-5.0); BILIRUBIN,TOTAL 1.5 mg/dL (0.0-1.0); CALCIUM 6.8 mg/dL (8.4-10.2); CREATININE, serum 1.52 (0.52-1.25); TOTAL PROTEIN 5.4 gm/dL (6.4-8.2)
[2019-12-20 07:06] LABS: POTASSIUM 2.9 mmol/L (3.4-5.0)
[2019-12-20 08:00] LABS: ANISOCYTOSIS 1+; BAND 24 % (0-10); LYMPHOCYTE 5 % (20.0-51.0); METAMYELOCYTE 1 % (0-0); NEUTROPHILS 66 % (42.0-75.2)
--- NOTE | 2019-12-20 11:10 | NUR ---
Assessment complete. patient awake and alert at this time. States she feels a little better than she did yesterday. States she has a little bit of pain in her legs with movement. On palpation she had some significant pain in her legs and feet, these are very edematous. Expiratory wheeze is audible without auscultation but with ascultation they are more prominent in the right lobe, other cleaning they are audible and clear. She is aware of her POC and her need for potassium replacement as well as her restriction of free water. No other needs were expressed at this time. Call light is in reach.
[2019-12-20 11:35] LABS: URINE PROTEIN 24HR (UPEP) 546 mg/24 h (<229)
--- NOTE | 2019-12-20 14:43 | NUR ---
DONNY faxed updates to [facility] and [facility]. HINES to continue to follow.
--- NOTE | 2019-12-20 17:45 | NUR ---
PT REPORTED FEELING SLIGHTLY NAUSEOUS. CRACKERS AND SPRITE PROVIDED FOR THIS. SARAHY REAGAN NOTIFIED STATED QTC WAS TOO HIGH FOR NAUSEA MEDICATION. CRACKERS AND SPRITE HELPED AT THIS TIME.
--- NOTE | 2019-12-20 18:00 | NUR ---
PT HAS HAD AN UNEVENTFUL DAY. SHE WAS REPOSITIONED PER COMFORT MULTIPLE TIMES THROUGH THE DAY. PAIN HAS BEEN MINIMAL WITH MOVEMENT, EDEMA PERSISTS. PICC LINE FLUSHED AND PULLED WELL. PATIENT HAS BEEN ALERT AND ORIENTED ALL DAY. NO OTHER ISSUES OR NEEDS AT THIS TIME. CALL LIGHT IS IN REACH.
[2019-12-21] VITALS (9 sets, daily range): BP systolic 117–140; BP diastolic 63–90; PULSE 98–134; TEMP 97.7–98.9
[2019-12-21 06:24] LABS: MEAN CELL VOLUME 98 fl (80.0-100.0); MEAN CORPUSCULAR HGB CONC 33 g/dl (33.0-37.0); MEAN PLATELET VOLUME 9.8 fl (7.4-10.4); PLATELET COUNT 89 K/mm3 (130-400); RED BLOOD COUNT 2.63 M/mm3 (4.10-5.30); REDCELL DISTRIBUTION WIDTH-CV 15.5 % (11.5-14.5)
[2019-12-21 06:41] LABS: CREATININE, serum 2.02 (0.52-1.25); MAGNESIUM 2.1 mg/dL (1.6-2.3); POTASSIUM 3.9 mmol/L (3.4-5.0)
[2019-12-21 06:49] LABS: HEMATOCRIT 25.7 % (37.0-47.0); HEMOGLOBIN 8.5 g/dl (12.5-16.0); MEAN CORPUSCULAR HEMOGLOBIN 32 pg (27.0-31.0)
[2019-12-21 07:30] LABS: ANISOCYTOSIS 1+; BAND 6 % (0-10); BASOPHIL 1 % (0-2); EOSINOPHIL 1 % (0-4); HYPOCHROMIA 1+; LYMPHOCYTE 11 % (20.0-51.0); METAMYELOCYTE 4 % (0-0); NEUTROPHILS 64 % (42.0-75.2); NUCLEATED RED BLOOD CELL 1 (0-6); PLATELET ESTIMATE DECREASED (NORMAL)
--- NOTE | 2019-12-21 08:00 | NUR ---
PT IN BED. REQUESTED TO TAKE OFF CPAP, GAVE MEDICATIONS, PT UNABLE TO ATTEMPT TO GRAB HER CUP TO DRINK OR TAKE MEDICINE CUP TO TAKE PILLS. ASSESSMENT PERFORMED. EDEMA PRESENT IN BUE AND BLE. KITCHEN CALLED FOR MORE GATORADE TO BE BROUGHT UP FOR HER. NO OTHER NEEDS AT THIS TIME.
--- NOTE | 2019-12-21 11:34 | NUR ---
First visit from the distribution engineering technologist. prayed with patient. No other needs right now.
--- NOTE | 2019-12-21 14:01 | NUR ---
DONNY attended clinical rounds. The hospitalist and molding engineer are recommending [facility] for the patient. DONNY and inventory transcriber met with the patient to discuss [facility]. The patient reports that she would be agreeable to go to [facility]. DONNY contacted and faxed a referral to Matheus at [facility]. DONNY updated the patient's sister, Pam. Pam sounded hestitant with the patient going there, but plans to contact their mother to inform her. Matheus, at [facility], then contacted DONNY and reports that the patient does meet criteria and that they would be able to accept her. DONNY to notify the hospitalist, patient, and her sister.
[2019-12-21 15:09] LABS: A/G RATIO (PEP) 0.94 (()); BETA GLOBULINS (PEP) 0.5 g/dL (0.7-1.2)
--- NOTE | 2019-12-21 15:57 | NUR ---
Matheus, at [facility], reports that they would have a bed for the patient tomorrow and requested a noon picking tech. DONNY notified the hospitalist. DONNY informed the patient and the patient's sister, Pam, via phone. They are both agreeable to the transfer. Pam plans to bring up the patient's belongings tomorrow morning. DONNY contacted [facility] and set up transport for tomorrow at [phone]. DONNY to continue to follow.
--- NOTE | 2019-12-21 17:09 | NUR ---
PT GIVEN BED BATH, LACKEY CARE, PER CARE, BED CHANGE, GOWN CHANGE. PT PULLED UP IN BED, NEW ALLEVIN DRESSING PLACED ON BOTTOM. PT GATORADE REFILLED. NO OTHER NEEDS AT THIS TIME.
--- NOTE | 2019-12-21 19:59 | NUR ---
Telemetry called stating patient HR in 130s afib. VS taken and stable. Spoke with Dr. Hays. Obtain EKG and given metoprolol 5mg IV now take BP prior to and after. Call back in 30 minutes with updated pulse. Respiratory notified of EKG orders.
--- NOTE | 2019-12-21 20:37 | NUR ---
Patient incontinent of bowel and urine leaking around jurado. Jurado kinked-fixed at this time. Clear yellow urine draining without complications. Incontinent care provided along with jurado care. Assessment complete. Expiratory wheezing present throughout all lung patino. Denies shortness of breath. Heart sounds tachy and irregular- EKG pending. Bowels active x4. Pulses present throughout. Bilateral upper and lower extremity edema +2. Bilateral bruising to forarms. Bilateral lower extremity discoloration present. Patient has skin tear to buttocks superior to anus-mepilex applied. Reports 6/10 generalized pain. Provided with scheduled tylenol. Denies other needs at this time. Will continue to closely monitor.
--- NOTE | 2019-12-21 21:09 | NUR ---
Patient pulse 100s to 110s on telemetry. Attempted to contact Dr. Hays for update no answer at this time-unable to leave voicemail. Will try again later.
--- NOTE | 2019-12-22 00:41 | NUR ---
Resting in bed. Reports generalized pain 09/21. Refused repositioning. Provided with gatorade. Denies other needs at this time. Call light in reach.
[2019-12-22 01:26] VITALS: BP 114/60; PULSE 101; TEMP 98.9
--- NOTE | 2019-12-22 03:07 | NUR ---
Resting in bed asleep. Call light in reach.
[2019-12-22 03:24] VITALS: BP 112/70; PULSE 104; TEMP 98.4
--- NOTE | 2019-12-22 04:33 | NUR ---
Patient incontinent of bowel. Educated patient to inform staff when bowel movement occurs to prevent sores. Patient states "I would rather get a sore before I have to roll and get cleaned up." Patient allowed staff to provide incontinent care at this time. Refused to reposition after. denies other needs at this time. Call light in reach.
--- NOTE | 2019-12-22 05:59 | NUR ---
Patient had one episode of afib RVR during night. Resolved with x1 dose of metoprolol and restarted home cardizem. Incontinent throughout night-cares provided each time. Otherwise uneventful night. Resting in bed this AM.
[2019-12-22 06:39] LABS: MEAN CELL VOLUME 98 fl (80.0-100.0); MEAN CORPUSCULAR HGB CONC 32 g/dl (33.0-37.0); PLATELET COUNT 118 K/mm3 (130-400); RED BLOOD COUNT 2.97 M/mm3 (4.10-5.30); REDCELL DISTRIBUTION WIDTH-CV 15.6 % (11.5-14.5)
[2019-12-22 06:48] LABS: HEMATOCRIT 29.2 % (37.0-47.0); HEMOGLOBIN 9.3 g/dl (12.5-16.0); MEAN CORPUSCULAR HEMOGLOBIN 31 pg (27.0-31.0)
[2019-12-22 06:55] LABS: CALCIUM 7.7 mg/dL (8.4-10.2); CREATININE, serum 2.82 (0.52-1.25); POTASSIUM 3.7 mmol/L (3.4-5.0)
--- NOTE | 2019-12-22 07:08 | NUR ---
Report given to ABHIJIT Martinez
[2019-12-22 08:55] LABS: BAND 11 % (0-10); EOSINOPHIL 1 % (0-4); LYMPHOCYTE 5 % (20.0-51.0); METAMYELOCYTE 15 % (0-0); NEUTROPHILS 59 % (42.0-75.2)
[2019-12-22 08:56] LABS: ANISOCYTOSIS 1+; HYPOCHROMIA 2+; PLATELET ESTIMATE DECREASED (NORMAL)
[2019-12-22 09:24] VITALS: BP 121/77; PULSE 104; TEMP 98.8
--- NOTE | 2019-12-22 09:33 | NUR ---
PT IN BED, REFUSES TURNS, STATES SHE DOESN'T KNOW WHEN SHE IS INCONTINENT, LACKEY DRAINING WELL, PT REQUESTS HELP WITH EATING EVEN THOUGH SHE CAN MOVE HER ARMS. HELP PROVIDED. PT PLANS TO GO TO [facility] TODAY. NO OTHER NEEDS AT THIS TIME. CALLED KITCHEN FOR MORE GATORADE.
--- NOTE | 2019-12-22 09:38 | NUR ---
The patient is to discharge today, 12/21, to [facility]. Transportation was scheduled at 1130, via [facility]. DONNY informed the patient, her RN, and the patient's sister (Pam) via phone. They were all in agreeance to the time. SW presented and read the EMS Consent Forms outloud to the patient. The patient verbalized understanding and gave DONNY approval to sign the forms on her behalf. No additional needs at this time.
[2019-12-22 10:27] VITALS: BP 121/77; PULSE 104; TEMP 98.8
--- NOTE | 2019-12-22 10:55 | NUR ---
CALLED REPORT TO ABHIJIT HAMMOND AT [facility] IN [place].
[2019-12-22 11:25] VITALS: BP 115/75; PULSE 108; TEMP 98.8
--- NOTE | 2019-12-22 12:07 | NUR ---
PT BEING DISCHARGED TO [facility] WITH LACKEY AND PICC LINE IN PLACE. REPORT GIVEN TO BOTH RN AT [facility] AND EMS DRIVERS. PT TRANSFERRED TO [facility] AND ESCORTED OUT BY EMS TEAM. NO OTHER NEEDS AT THIS TIME. PT BELONGINGS TAKEN WELL
[2019-12-22 12:25] LABS: URINE A/G RATIO 24HR (UPEP) 0.75 (()); URINE ALPHA 1 GLOB 24HR (UPEP) 3 % (()); URINE ALPHA 2 GLOB 24HR (UPEP) 22 % (()); URINE BETA GLOB 24HR (UPEP) 14 % (()); URINE GAMMA GLOB 24HR (UPEP) 18 % (())
== END 2019-12-22 12:10 | DRG 871 ==
LOC: COL.ER 19:28 → ICU 21:45 → IMCU 12-18 20:12 → MEDICAL 12-19 19:15
PROVIDERS: Family Medicine; Hospitalist; Internal Medicine Pulmonary Disease; Nurse Practitioner; Physician Assistant; ADMIT Student in an Organized Health Care Education/Training Program
PROC: 02HV33Z Insertion of Infusion Device into Superior Vena Cava, Percutaneous Approach (ICD-10-PCS; principal; 2019-12-19)
DX: A41.9 Sepsis, unspecified organism (principal); R65.21 Severe sepsis with septic shock; N17.9 Acute kidney failure, unspecified; E23.0 Hypopituitarism; N39.0 Urinary tract infection, site not specified; E87.1 Hypo-osmolality and hyponatremia; I27.20 Pulmonary hypertension, unspecified; I12.9 Hypertensive chronic kidney disease with stage 1 through stage 4 chronic kidney disease, or unspecified chronic kidney disease; N18.9 Chronic kidney disease, unspecified; I48.91 Unspecified atrial fibrillation; G47.33 Obstructive sleep apnea (adult) (pediatric); M79.7 Fibromyalgia; K80.20 Calculus of gallbladder without cholecystitis without obstruction; D69.6 Thrombocytopenia, unspecified; D64.9 Anemia, unspecified; N18.3 Chronic kidney disease, stage 3 (moderate); E66.01 Morbid (severe) obesity due to excess calories; G43.909 Migraine, unspecified, not intractable, without status migrainosus; J44.9 Chronic obstructive pulmonary disease, unspecified; E87.6 Hypokalemia; M06.9 Rheumatoid arthritis, unspecified; E78.5 Hyperlipidemia, unspecified; Z88.2 Allergy status to sulfonamides; Z88.1 Allergy status to other antibiotic agents
CPT/HCPCS: 99223-AI; 99232-AI; 99233-AI; 99239; A9284; C1751; C1892; J0692; J0696; J1644; J1720; J1940; J2543; J3370; J7030; J7040; J7050; J7060; J7120; J7512

== ENCOUNTER 2021-04-23 08:13 | Inpatient (IN) | payer MEDICARE ==
[~2021-04-23] VITALS: Ht 154.9 cm; Wt 113.9 kg
[~2021-04-23 08:13] MED LIST changes: +ALBUTEROL0.83 MG/ML IH; +AMOXICILLIN 8751 TAB PO; +DEBROX OT; +LEVOXYL0.125 MG PO; -LIPITOR 10MG10 MG PO; +NAPROSYN 2250 MG/TAB PO; +PRINCIPEN500 MG PO; +SYNTHROID 0.10.15 MG PO; +VITAMIN D PO
[2021-04-23 08:50] LABS: HEMATOCRIT 41.9 % (37.0-47.0); HEMOGLOBIN 13.3 g/dl (12.5-16.0); MEAN CELL VOLUME 95 fl (80.0-100.0); MEAN CORPUSCULAR HEMOGLOBIN 30 pg (27.0-31.0); MEAN CORPUSCULAR HGB CONC 32 g/dl (33.0-37.0); MEAN PLATELET VOLUME 9.2 fl (7.4-10.4); PLATELET COUNT 128 K/mm3 (130-400); RED BLOOD COUNT 4.39 M/mm3 (4.10-5.30); REDCELL DISTRIBUTION WIDTH-CV 15.7 % (11.5-14.5)
[2021-04-23 09:07] LABS: ALBUMIN 4.2 gm/dL (3.4-4.8); BILIRUBIN,TOTAL 2.3 mg/dL (0.2-1.2); CALCIUM 8.4 mg/dL (8.4-10.2); CREATININE, serum 1.31 mg/dL (0.57-1.11); TOTAL PROTEIN 8.2 gm/dL (6.2-8.1)
[2021-04-23 09:15] LABS: ANISOCYTOSIS 1+; BAND 15 % (0-10); EOSINOPHIL 1 % (0-4); NEUTROPHILS 80 % (42.0-75.2); PLATELET ESTIMATE DECREASED (NORMAL)
[2021-04-23 09:16] LABS: HYPOCHROMIA 1+
[2021-04-23] MEDS ORDERED: SYNTHROID0.1 MG/TAB PO (09:22)
[2021-04-23] MEDS ORDERED: NORCO 325 MG-7.1 TAB PO (09:29)
[2021-04-23] MEDS ORDERED: BUMEX 1MG TA1 MG/TA1 PO (09:32)
[2021-04-23 11:43] LABS: CLOSTRIDIUM DIFF A/B NEG; CLOSTRIDIUM DIFF A/B INTERP No C.diff present
[2021-04-23] MEDS ORDERED: MACROBID 1100 MG/CAP PO (13:41)
[2021-04-23 14:02] VITALS: BP 126/68; PULSE 116; TEMP 98.4
[2021-04-23 16:00] VITALS: BP 105/51; PULSE 102; TEMP 98.8
[2021-04-23 16:40] LABS: COLLECTION METHOD CATHETER
[2021-04-23 17:00] LABS: MUCOUS Present /lpf; PH 5 (5-8); SQUAMOUS EPITHELIAL 0-2 /hpf; URINE APPEARANCE Hazy; URINE BACTERIA None Seen /hpf; URINE BILIRUBIN Negative (NEGATIVE); URINE BLOOD Negative (NEGATIVE); URINE COLOR Yellow; URINE GLUCOSE Negative (NEGATIVE); URINE KETONE Negative (NEGATIVE); URINE LEUKOCYTE ESTERASE 1+ (NEGATIVE); URINE NITRATE Negative (NEGATIVE); URINE PROTEIN(semi-quant) 1+ (NEGATIVE); URINE UROBILINOGEN Negative (NEGATIVE)
--- NOTE | 2021-04-23 18:14 | NUR ---
Pt arrived to floor earlier this evening. Has copious amounts of liquid brown stool that she is compeltely incontinent of. Total bed change multiple times over shift. Denies needs, eating CLD. will give report to nightshift nurse who will resume care
[2021-04-23 18:32] VITALS: PULSE 114
[2021-04-23 20:51] VITALS: BP 103/56; PULSE 87; TEMP 97.7
[2021-04-24] VITALS (7 sets, daily range): BP systolic 95–1116; BP diastolic 47–71; PULSE 64–100; TEMP 97.5–99.8
[2021-04-24 06:52] LABS: BASO % 0.4 % (0.0-2.0); EOS # 0.2 K/mm3 (0.0-0.7); EOS % 2.7 % (0-4.0); GRAN # 6.6 K/mm3 (1.4-6.5); GRAN % 81.5 % (42.2-75.2); HEMATOCRIT 39.2 % (37.0-47.0); HEMOGLOBIN 12.4 g/dl (12.5-16.0); LYMPH # 0.7 K/mm3 (1.2-3.4); LYMPH % 8.3 % (20.0-51.0); MEAN CELL VOLUME 97 fl (80.0-100.0); MEAN CORPUSCULAR HEMOGLOBIN 31 pg (27.0-31.0); MEAN CORPUSCULAR HGB CONC 32 g/dl (33.0-37.0); MEAN PLATELET VOLUME 9.9 fl (7.4-10.4); MONO # 0.5 K/mm3 (0.1-0.6); MONO % 6.5 % (1.7-9.3); PLATELET COUNT 107 K/mm3 (130-400); RED BLOOD COUNT 4.06 M/mm3 (4.10-5.30); REDCELL DISTRIBUTION WIDTH-CV 16.2 % (11.5-14.5)
--- NOTE | 2021-04-24 06:55 | NUR ---
Pt. progressing w/ plan of care. Pt. resting in bed, denies needs at this time. Pt. reports she would like to rest right now. Call light and belongings in reach.
[2021-04-24 07:13] LABS: ALBUMIN 2.7 gm/dL (3.4-4.8); BILIRUBIN,TOTAL 1.8 mg/dL (0.2-1.2); CALCIUM 7.2 mg/dL (8.4-10.2); CREATININE, serum 1.4 mg/dL (0.57-1.11); POTASSIUM 3.8 mmol/L (3.5-4.5); TOTAL PROTEIN 5.3 gm/dL (6.2-8.1)
--- NOTE | 2021-04-24 10:25 | NUR ---
Pt. slowly progressing w/ plan of care. Pt. reports generalized discomfort, PRN norco administered, effect pending. Pt. was incontinent of B&B this am and was washed, pericare provided. Pt. reports significant soreness in her adrianne area when being changed. SARAHY Matt notified of pt.'s skin. SARAHY reccomends to monitor pt.'s bowel movements today. Bed alarm on, call light and belongings in reach.
--- NOTE | 2021-04-24 10:35 | NUR ---
Initial visit attempt; Patient in isolation, Ice Hockey Coach left prayer card so that patient would be aware of Ice Hockey Coach's presence sharing God's blessings.
--- NOTE | 2021-04-24 15:03 | NUR ---
bilingual patient support caseworker met with patient to discuss discharge plan. Patient reports that she lives at home in [facility] and that her mother Lacy ([phone]) lives with her. Patient reports that prior to this admission, she was fully independent with her ADL's and that she uses a walker to assist with mobility. Patient does not have O2 needs at home but she does report to using a CPAP at night and receives her supplies through [facility]. PCP is Dr. Juarez and she utilizes [facility] pharmacy for perscriptions with no cost difficulty. DPOA-HC on file lists her sister Pam ([phone]). Confirmed with the patient that her sister is still her DPOA-HC. Collaborated with the patient's RN about the patient no working with the therapy teams. RN confirms that due to the patient's illness she legitimately cannot work with therapy in a productive way. RN confirms that the patient treatment plan for today should allow her to workwith therapy tomorrow. Discharge plan: Home - pending PT/OT natali.
--- NOTE | 2021-04-24 16:20 | NUR ---
New order obtained this afternoon from SARAHY Matt & Dr. Colindres to place rectal tube. Rectal tube placed, pt. reported discomfort but no complications. Rectal tube draining gonzalez liquid stool. External purewick cath applied to pt.'s adrianne area. Pt. has been reporting generalized pain throughout the day, PRN norco given, effect pending. Pt. repositioned off her buttocks using pillows and new interdry moisture wicking fabric applied underneath pt.'s folds. Call light and belongings in reach.
[2021-04-24 17:00] LABS: CLOSTRIDIUM DIFF A/B NEG; CLOSTRIDIUM DIFF A/B INTERP No C.diff present
--- NOTE | 2021-04-24 21:33 | NUR ---
PT LAYING IN BED, PLEASANT JUST WOKE UP FROM NAP. SAID SHE DID NOT REMEMBER THIS RN COMING IN AT 1830 FOR SHIFT CHANGE. PT IS PLEASANT, COOPERATIVE AND COMPLAINS OF PAIN, STATES "NORMAL PAIN FOR HER". REQUESTED PAIN MEDICATION TO HELP CONTROL. TOOK ALL MEDICATIONS PRESCRIBED. PT STATED THAT SHE NORMALLY HAS 4 EYE DROPS THAT SHE TAKES, ONLY FOUND 2 ON EMAR. PT STATED THAT [facility] SHOULD HAVE RECORD OF HER MEDICATIONS. PT ALSO ASKED ABOUT ENVELOPE THAT WAS TAKEN TO NURSE'S STATION THAT CONTAINED AN EULOGY FOR A TOMORROW. THE ENVELOPE HAD NAME 'MARV AVILA' ON IT. ABHIJIT MUNOZ COULDN'T FIND AT ATHLETIC COORDINATOR, THIS RN WILL LOOK. PT UNSURE IF IT HAD BEEN PICKED UP. PT STATED THAT BP TAKEN ON RIGHT ARM WAS EXTREMELY PAINFUL, ECCHYMOSIS WAS SIGNIFICANT AROUND ELBOW REGION. TOOK BP ON LEFT FOREARM PER PT REQUEST TO MINIMIZE PAIN. PT REQUESTED HELP WITH JELLO, STATING SHE FELT OK TO EAT SOMETHING, EVEN THOUGH JELLO WAS NOT VERY FILLING. PT CALL LIGHT IN REACH, EXIT BOOTH AGENT BROUGHT CLOSER TO PT, NO OTHER NEEDS AT THIS TIME.
[2021-04-25 00:21] VITALS: BP 93/60; PULSE 46; PULSE 78; TEMP 98.5
[2021-04-25 04:05] VITALS: BP 106/60; PULSE 69; TEMP 97.7
--- NOTE | 2021-04-25 06:06 | NUR ---
PT SLEPT MOST OF NIGHT, TOOK PAIN MEDICATION REGULARLY DUE TO "CHANGE OF WEATHER THAT INCREASES PAIN." PT TOOK ALL MEDICATIONS PRESCRIBED. PT ONLY HAD ABOUT 150 ML OF DIARRHEA IN RECTAL TUBE BAG. DARK BROWN AND LIQUID. PT REMAINED AFEBRILE. PT CALL LIGHT IN REACH, NO OTHER NEEDS AT THIS TIME.
[2021-04-25 07:02] LABS: BASO % 0.4 % (0.0-2.0); EOS # 0.3 K/mm3 (0.0-0.7); EOS % 3.3 % (0-4.0); GRAN # 6.1 K/mm3 (1.4-6.5); GRAN % 76.6 % (42.2-75.2); LYMPH % 12.8 % (20.0-51.0); MEAN CELL VOLUME 99 fl (80.0-100.0); MEAN CORPUSCULAR HGB CONC 31 g/dl (33.0-37.0); MEAN PLATELET VOLUME 9.5 fl (7.4-10.4); MONO # 0.5 K/mm3 (0.1-0.6); MONO % 6.3 % (1.7-9.3); PLATELET COUNT 96 K/mm3 (130-400); RED BLOOD COUNT 3.37 M/mm3 (4.10-5.30)
[2021-04-25 07:07] LABS: HEMATOCRIT 33.2 % (37.0-47.0); HEMOGLOBIN 10.3 g/dl (12.5-16.0); MEAN CORPUSCULAR HEMOGLOBIN 31 pg (27.0-31.0)
[2021-04-25 07:20] LABS: ALBUMIN 2.4 gm/dL (3.4-4.8); CALCIUM 6.9 mg/dL (8.4-10.2); CREATININE, serum 1.15 mg/dL (0.57-1.11); MAGNESIUM 1.7 mg/dL (1.6-2.6); PHOSPHOROUS 2.8 mg/dL (2.3-4.7); POTASSIUM 4.1 mmol/L (3.5-4.5)
[2021-04-25 07:53] VITALS: BP 100/59; PULSE 57; TEMP 98
--- NOTE | 2021-04-25 09:43 | NUR ---
Pt awake and alert upon entry to room, no C/O pain at this time. Rectal tube in place. Shift assessment complete, left Pt call light in reach, bed in lowest position.
[2021-04-25 12:56] VITALS: BP 123/81; PULSE 90; TEMP 98.3
--- NOTE | 2021-04-25 16:12 | NUR ---
Rotary Adjuster followed up with patient about discharge plan. Patient has been refusing to work with PT/OT. Patient does not anticipate that she will need rehab and plans to return home. SW discussed Home Health with patient who stated "we'll see". Patient states she has had [facility] in the past.
[2021-04-25 20:26] VITALS: BP 130/70; PULSE 86; TEMP 98.2
--- NOTE | 2021-04-25 21:00 | NUR ---
Initial shift assessment done-pleasant, alert/oriented, Tele on afib,rate controlled, on diltiazem drip at 5cc/hr, also LR at 75cc/hr, states having pain all over 8/10, chronic pain- will give [place] as ordered, Has rectal tube with scant liquid stool and Purewick on with jaskaran colored urine.
[2021-04-25 23:53] VITALS: BP 99/66; PULSE 78; TEMP 98
[2021-04-26 03:59] VITALS: BP 110/58; PULSE 77; TEMP 97.5
--- NOTE | 2021-04-26 06:00 | NUR ---
Quiet night, VSS, slept fair- did talk with patieent about an order for the rectal tube to come out-- pt would like to talk to doctor before this happens today
[2021-04-26 07:31] LABS: BASO % 0.3 % (0.0-2.0); EOS # 0.3 K/mm3 (0.0-0.7); EOS % 3.4 % (0-4.0); GRAN # 5.4 K/mm3 (1.4-6.5); GRAN % 73.8 % (42.2-75.2); LYMPH # 1.1 K/mm3 (1.2-3.4); LYMPH % 14.9 % (20.0-51.0); MEAN CORPUSCULAR HGB CONC 32 g/dl (33.0-37.0); MEAN PLATELET VOLUME 9.6 fl (7.4-10.4); MONO # 0.5 K/mm3 (0.1-0.6); MONO % 6.5 % (1.7-9.3); PLATELET COUNT 105 K/mm3 (130-400); RED BLOOD COUNT 3.25 M/mm3 (4.10-5.30); REDCELL DISTRIBUTION WIDTH-CV 15.3 % (11.5-14.5)
[2021-04-26 07:34] LABS: HEMATOCRIT 30.1 % (37.0-47.0); HEMOGLOBIN 9.7 g/dl (12.5-16.0); MEAN CELL VOLUME 93 fl (80.0-100.0); MEAN CORPUSCULAR HEMOGLOBIN 30 pg (27.0-31.0)
[2021-04-26 07:41] LABS: ALBUMIN 2.4 gm/dL (3.4-4.8); CALCIUM 7.3 mg/dL (8.4-10.2); CREATININE, serum 0.86 mg/dL (0.57-1.11); MAGNESIUM 1.7 mg/dL (1.6-2.6); PHOSPHOROUS 2.7 mg/dL (2.3-4.7); POTASSIUM 3.7 mmol/L (3.5-4.5)
[2021-04-26 08:19] VITALS: BP 113/51; PULSE 72; TEMP 98.8
[2021-04-26 12:09] VITALS: BP 124/58; PULSE 72; TEMP 98.8
[2021-04-26] MEDS ORDERED: TRUSOPT OCUMETE10 ML OU (15:08)
--- NOTE | 2021-04-26 20:30 | NUR ---
Initial shift assessment done- states has pain all over- will give [place] as ordered, continues with purewick for urine and rectal tube draining small amount liquid stool. pt wondering about her CPAP that was ordered- will call respiratory therapy. tele on, afib rate 76.
[2021-04-26 20:49] VITALS: BP 126/64; PULSE 71; TEMP 98.8
[2021-04-26] MEDS ORDERED: TIMOPTIC 0.5%-10 OU (20:54)
--- NOTE | 2021-04-26 23:49 | NUR ---
Hospital does not have cpap machines for patient use-they have been recalled- so pt informed of this- will have family bring hers in if possible,, respiratory therapy states they usually put pts on some o2 at night if Cpap not here from home. Patient put on o2 at 2L/nc.
[2021-04-27] VITALS (7 sets, daily range): BP systolic 106–138; BP diastolic 54–76; PULSE 56–81; TEMP 97.5–98.4
--- NOTE | 2021-04-27 06:01 | NUR ---
Quiet night- did sleep well last night, continues with the o2 at 2-3L/nc during the night in place of CPAP,scant liquid stool out the rectal tube,, good output per purewick during the night.
--- NOTE | 2021-04-27 10:38 | NUR ---
RECTAL TUBE DISCOUNTINED AT THIS TIME PT TOLARATED WELL
--- NOTE | 2021-04-27 22:05 | NUR ---
Patient assessed around 2044. Alert and oriented x 4. Reports level 8 pain all over. Given PRN [place]. Peripheral INT to left AC. HRI. Telemetry in place: A-fib, rate controlled at this time. LS fine crackles upper lobes, diminished lower. Redness to groin and coccyx. Scaling/flaking to BLE. Genearlized edema. 3+ BLE. Voices no questions, needs, or concerns at this time. In bed with call light within reach.
--- NOTE | 2021-04-28 05:39 | NUR ---
Patient had gotten upset with staff waking her up to check VS, and refused VS to be checked. SARAHY Guo notified. Telemetry remains in place, A-fib, rate controlled. Patient resting in bed with eyes closed, call light within reach. Received pain medication as requeste during the night.
[2021-04-28 07:07] LABS: HEMOGLOBIN 10.2 g/dl (12.5-16.0); MEAN CELL VOLUME 90 fl (80.0-100.0); MEAN CORPUSCULAR HEMOGLOBIN 30 pg (27.0-31.0); MEAN CORPUSCULAR HGB CONC 33 g/dl (33.0-37.0); MEAN PLATELET VOLUME 9.4 fl (7.4-10.4); PLATELET COUNT 104 K/mm3 (130-400); RED BLOOD COUNT 3.39 M/mm3 (4.10-5.30); REDCELL DISTRIBUTION WIDTH-CV 14.8 % (11.5-14.5)
[2021-04-28 07:19] LABS: HEMATOCRIT 30.5 % (37.0-47.0)
[2021-04-28 07:21] LABS: ALBUMIN 2.6 gm/dL (3.4-4.8); CALCIUM 7.5 mg/dL (8.4-10.2); CREATININE, serum 0.85 mg/dL (0.57-1.11); MAGNESIUM 1.6 mg/dL (1.6-2.6); PHOSPHOROUS 3.2 mg/dL (2.3-4.7)
[2021-04-28 07:46] LABS: BAND 5 % (0-10); EOSINOPHIL 2 % (0-4); METAMYELOCYTE 1 % (0-0); NEUTROPHILS 61 % (42.0-75.2); PLATELET ESTIMATE DECREASED (NORMAL)
[2021-04-28 07:47] LABS: LYMPHOCYTE 23 % (20.0-51.0)
[2021-04-28 08:33] VITALS: BP 127/78; PULSE 55; TEMP 97.5
--- NOTE | 2021-04-28 12:01 | NUR ---
Vancomycin Initial Dosing Pharmacy Note Ordering provider: Tanner Colindres MD Indication/duration: Cellulitis, 5 days LABS: SCr 0.85, CrCl~59, GFR 65 Recommendation: Start Vancomycin 1.25 gm IV q12h. Pharmacy will continue to closely monitor and check a Vancomycin trough on 04/30/21. Maintenance dose: 1.25 grams every 12 hours Trough goal: 10-15 ug/mL
[2021-04-28 12:43] VITALS: BP 113/62; PULSE 67; TEMP 97.6
--- NOTE | 2021-04-28 13:53 | NUR ---
Cardiac/Vascular Sonographer followed up with patient to discuss discharge plan. SW reviewed PT recommendation for post acute rehab. Patient is agreeable to this and advised her first preference would be [facility]. Patient's second preference is [facility]. SW contacted both facilities and faxed referral. DONNY then contacted patient's sister, Pam to provide update. DONNY was contacted by Gail at [facility] who advised they are able to accept. Discharge Plan: [facility]
[2021-04-28 15:31] VITALS: BP 114/66; PULSE 91; TEMP 98.1
[2021-04-28 20:27] VITALS: BP 139/63; PULSE 66; TEMP 97.5
[2021-04-29 01:47] VITALS: BP 131/78; PULSE 53; TEMP 97.6
--- NOTE | 2021-04-29 02:03 | NUR ---
Patient resting in bed upon enter the room. Patient denies any needs at this time. VS stable. No acute distress noted. Call light in reach. Will continue to monitor.
--- NOTE | 2021-04-29 06:48 | NUR ---
Pt. progressing w/ plan of care. This RN introduced self to patient. Pt. resting in bed, denies needs at this time. Call light and belongings in reach.
[2021-04-29 07:03] LABS: MEAN CELL VOLUME 93 fl (80.0-100.0); MEAN CORPUSCULAR HEMOGLOBIN 31 pg (27.0-31.0); MEAN CORPUSCULAR HGB CONC 33 g/dl (33.0-37.0); MEAN PLATELET VOLUME 9.3 fl (7.4-10.4); PLATELET COUNT 126 K/mm3 (130-400); RED BLOOD COUNT 3.28 M/mm3 (4.10-5.30); REDCELL DISTRIBUTION WIDTH-CV 15.2 % (11.5-14.5)
[2021-04-29 07:06] LABS: HEMATOCRIT 30.4 % (37.0-47.0)
[2021-04-29 07:25] LABS: CALCIUM 7.3 mg/dL (8.4-10.2); CREATININE, serum 0.83 mg/dL (0.57-1.11)
[2021-04-29 08:07] LABS: BAND 9 % (0-10); EOSINOPHIL 3 % (0-4); LYMPHOCYTE 7 % (20.0-51.0); METAMYELOCYTE 8 % (0-0); NEUTROPHILS 68 % (42.0-75.2); PLATELET ESTIMATE NORMAL (NORMAL)
[2021-04-29 08:31] VITALS: BP 130/83; PULSE 56; TEMP 97.4
--- NOTE | 2021-04-29 09:49 | NUR ---
Pt. progressing w/ plan of care. Pt. awake in bed, pt. was just cleaned by HONORIO Young, pt. was incontinent of stool this AM. Pt. just ordered breakfast and waiting for it to arrive. Physical therapy and occupational therapy to work with the patient this AM. Needs addressed, call light and belongings in reach.
[2021-04-29] MEDS ORDERED: ASPIRIN E.C. 8181 MG PO (10:21)
[2021-04-29] MEDS ORDERED: NORCO 325 MG-7.1 TAB PO (10:30)
[2021-04-29 11:09] VITALS: BP 118/65; PULSE 64; TEMP 98.1
[2021-04-29 15:00] VITALS: BP 148/83; PULSE 81; TEMP 98
--- NOTE | 2021-04-29 16:53 | NUR ---
Road Tester attended clinical rounds with the team and patient is a possible discharge today. DONNY contacted [facility] and faxed clinical updates. [facility] would like patient to see patient stable for more time with no loose stools. They also asked if patient needs to remain on isolation and is contagious as this could put other residents at risk. DONNY contacted SARAHY Matt who advised she would follow up with [facility] RN about this.
--- NOTE | 2021-04-29 22:00 | NUR ---
Patient is resting in bed watching TV. Reports generalized pain due to her condition. PRN provided according to availability. VSS, no nausea, vomiting. Tele in place. Stated she refuses VS checks at night. Educated about monitoring. Assessment completed, meds provided. No further needs at this time. Call light within reach.
[2021-04-30 05:02] VITALS: BP 113/54; PULSE 57; TEMP 98
--- NOTE | 2021-04-30 07:16 | NUR ---
Patient has had a calm night. Pt continues with generalized pain. PRN provided. All needs met. Shift report given to dayshift nurse.
[2021-04-30 10:09] LABS: HEMOGLOBIN 11.9 g/dl (12.5-16.0); MEAN CELL VOLUME 90 fl (80.0-100.0); MEAN CORPUSCULAR HEMOGLOBIN 30 pg (27.0-31.0); MEAN CORPUSCULAR HGB CONC 33 g/dl (33.0-37.0); PLATELET COUNT 199 K/mm3 (130-400); RED BLOOD COUNT 3.97 M/mm3 (4.10-5.30); REDCELL DISTRIBUTION WIDTH-CV 15.3 % (11.5-14.5)
[2021-04-30 10:13] LABS: HEMATOCRIT 35.8 % (37.0-47.0)
[2021-04-30 10:23] LABS: CALCIUM 8.4 mg/dL (8.4-10.2); CREATININE, serum 0.93 mg/dL (0.57-1.11); POTASSIUM 3.5 mmol/L (3.5-4.5)
--- NOTE | 2021-04-30 10:26 | NUR ---
Pt. progressing w/ plan of care. Pt. was able to get OOB to commode w/ therapy. This RN assisted pt. to the chair, she ambulated about 10 feet w/ standby assist, rolling walker, and gait belt. PRN Boyds administered with good effect. Pt. had a BM when on the commode, BM is semi-formed today, small amount of brown stool noted. Needs addressed, call light and belongings in reach.
[2021-04-30 11:06] LABS: BAND 9 % (0-10); BASOPHIL 3 % (0-2); EOSINOPHIL 5 % (0-4); METAMYELOCYTE 3 % (0-0)
[2021-04-30 11:07] LABS: ANISOCYTOSIS 1+; LYMPHOCYTE 9 % (20.0-51.0); NEUTROPHILS 65 % (42.0-75.2); PLATELET ESTIMATE NORMAL (NORMAL)
--- NOTE | 2021-04-30 11:40 | NUR ---
This RN spoke with Milla from infection control regarding pt.'s BM this AM at 10am. Milla reports the patient needs to remain free from having liquid stools for 48 hours to come off c-diff precations. high worker Debora made aware.
[2021-04-30 11:55] VITALS: BP 157/74; PULSE 89; TEMP 97.6
--- NOTE | 2021-04-30 16:20 | NUR ---
Survey Questionnaire Designer faxed clinical updates to Gail at [facility]. DONNY followed up with ELIZABETH Loyola RN who advised that patient would need to be 48 hours with non liquid stools before she can be taken off isolation. DONNY updated Gail at [facility] who advised they can accept once patient is off isolation and no longer considered contagious. DONNY updated Hospitalist who felt this was reasonable. Discharge Plan: [facility]
[2021-04-30 17:42] VITALS: BP 139/91; PULSE 68; TEMP 98.4
--- NOTE | 2021-04-30 21:00 | NUR ---
Patient is resting in bed watching TV. Alert and oriented x 4. Reports generalized pain. PRN provided as allowed in EMAR. Tele in place, afib. Assessment completed, medications provided. No further needs at this time. Phone number provided since call light is not working.
[2021-04-30 21:16] VITALS: BP 124/72; PULSE 69; TEMP 97.9
[2021-05-01 05:52] VITALS: BP 117/56; PULSE 66; TEMP 97.6
--- NOTE | 2021-05-01 06:37 | NUR ---
Patient has had a calm night. Continues with PRN pain medications. All needs met. Shift report will be given to day shift nurse.
--- NOTE | 2021-05-01 07:20 | NUR ---
REPORT RECIEVE FROM THRESHING OPERATOR. NO COMPLAINTS OF PAIN OR DYSPNEA. NO SIGNS OF DISTRESS. CALL LIGHT WITHIN REACH
--- NOTE | 2021-05-01 09:32 | NUR ---
PT ASSESSED. COMPLAINS OF PAIN AND MEDICATION GIVEN. NO SIGNS OF DISRTESS NOTED. PT HAD BM. NEW PUREWICK CATHETER PLACED. NO CONCERNS OR QUESTIONS. CALL LIGHT WITHIN REACH.
[2021-05-01 13:03] LABS: HEMOGLOBIN 10.5 g/dl (12.5-16.0); MEAN CELL VOLUME 92 fl (80.0-100.0); MEAN CORPUSCULAR HEMOGLOBIN 30 pg (27.0-31.0); MEAN CORPUSCULAR HGB CONC 33 g/dl (33.0-37.0); PLATELET COUNT 173 K/mm3 (130-400); REDCELL DISTRIBUTION WIDTH-CV 15.6 % (11.5-14.5)
[2021-05-01 13:13] LABS: HEMATOCRIT 32.2 % (37.0-47.0)
[2021-05-01 13:17] LABS: CALCIUM 7.9 mg/dL (8.4-10.2); CREATININE, serum 0.93 mg/dL (0.57-1.11); POTASSIUM 3.6 mmol/L (3.5-4.5)
[2021-05-01 13:57] LABS: BAND 6 % (0-10); BASOPHIL 1 % (0-2); EOSINOPHIL 3 % (0-4); LYMPHOCYTE 7 % (20.0-51.0); METAMYELOCYTE 1 % (0-0); NEUTROPHILS 78 % (42.0-75.2)
[2021-05-01 13:58] LABS: HYPOCHROMIA 1+; PLATELET ESTIMATE NORMAL (NORMAL)
[2021-05-01 16:25] VITALS: BP 134/59; PULSE 69; TEMP 98.2
--- NOTE | 2021-05-01 18:17 | NUR ---
PT CONTINUES RESTING IN BED. NO SIGNS OF DISTRESS. PT IS VERY SELF LIMITING AND REQUESTS NURSING STAFF TO DO SIMPLE TASK FOR HER SUCH PLACE PILLS INTO HER MOUTH AND HOLD HER WATER CUP. CONTIUES TO COMPLAIN OF GENERALIZED PAIN. NO OTHER COMPLAINTS THIS SHIFT. CALL LIGHT WITHIN REACH
[2021-05-01 20:00] VITALS: BP 130/69; PULSE 80; TEMP 98.8
--- NOTE | 2021-05-01 20:46 | NUR ---
Patient is resting in bed watchint TV. Alert and oriented. Continues reporting generalized pain, PRN provided. Tele ini place. Assessment completed, medications provided. No further needs at this time. Call light within reach.
--- NOTE | 2021-05-02 05:42 | NUR ---
Patient has not have another BM along the night. PRN medicatios for pain were provided. All needs met. Shift report will be given to day RN.
--- NOTE | 2021-05-02 07:00 | NUR ---
Pt. progressing w/ plan of care. Pt. resting in bed w/ eyes closed. This RN introduced self to patient this AM, pt. 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 Pt. denies needs at this time and is requesting to sleep. Call light and belongings in reach.
[2021-05-02 07:36] LABS: MEAN CELL VOLUME 90 fl (80.0-100.0); MEAN CORPUSCULAR HGB CONC 34 g/dl (33.0-37.0); MEAN PLATELET VOLUME 9.2 fl (7.4-10.4); PLATELET COUNT 181 K/mm3 (130-400); RED BLOOD COUNT 3.18 M/mm3 (4.10-5.30); REDCELL DISTRIBUTION WIDTH-CV 15.2 % (11.5-14.5)
[2021-05-02 07:43] LABS: HEMATOCRIT 28.5 % (37.0-47.0); HEMOGLOBIN 9.6 g/dl (12.5-16.0); MEAN CORPUSCULAR HEMOGLOBIN 30 pg (27.0-31.0)
[2021-05-02 08:00] VITALS: PULSE 54; TEMP 98.1
[2021-05-02 08:00] LABS: CREATININE, serum 0.85 mg/dL (0.57-1.11); POTASSIUM 3.5 mmol/L (3.5-4.5)
[2021-05-02 09:11] LABS: BAND 7 % (0-10); BASOPHIL 1 % (0-2); EOSINOPHIL 5 % (0-4); LYMPHOCYTE 16 % (20.0-51.0); METAMYELOCYTE 6 % (0-0); MYELOCYTE 2 % (0-0); NEUTROPHILS 54 % (42.0-75.2); PLATELET ESTIMATE NORMAL (NORMAL); TEAR DROP CELLS 1+
--- NOTE | 2021-05-02 09:32 | NUR ---
Pt. progressing w/ plan of care. Pt. had a loose BM this AM, semi soft. Pt. was incontinent. Pt. reports her breakfast will be here soon. Pt. requesting pain medication after breakfast. Call light and belongings in reach.
[2021-05-02 11:59] VITALS: PULSE 65; TEMP 98
--- NOTE | 2021-05-02 14:28 | NUR ---
Director Patient Accounting faxed clinical updates to Gail at [facility] who advised they are able to accept patient today. SW collaborated with Hospitalist who advised patient is ready for discharge today. SW set transport time for 1300 and provided this time to patient, who is in agreement with discharge to [facility]. DONNY contacted patient's sister, Pam and notified her of discharge. DONNY faxed discharge orders and negative COVID results to Gail at [facility]. Discharge Plan: [facility]
--- NOTE | 2021-05-02 16:00 | NUR ---
Pt. discharged to [facility]. IV removed, site c/d/i. Tele removed. Pt. picked up by [facility] staff. All paperwork provided. All questions answered.
== END 2021-05-02 16:00 | DRG 371 ==
LOC: COL.ER 08:13 → MEDICAL 12:14
PROVIDERS: Personal Emergency Response Attendant; Physician Assistant; ADMIT Internal Medicine
DX: A04.0 Enteropathogenic Escherichia coli infection (principal); J96.01 Acute respiratory failure with hypoxia; I13.0 Hypertensive heart and chronic kidney disease with heart failure and stage 1 through stage 4 chronic kidney disease, or unspecified chronic kidney disease; I50.32 Chronic diastolic (congestive) heart failure; N39.0 Urinary tract infection, site not specified; E87.2 Acidosis; M79.7 Fibromyalgia; Z66 Do not resuscitate; I48.0 Paroxysmal atrial fibrillation; G47.33 Obstructive sleep apnea (adult) (pediatric); D69.6 Thrombocytopenia, unspecified; K21.9 Gastro-esophageal reflux disease without esophagitis; E78.5 Hyperlipidemia, unspecified; E86.0 Dehydration; D64.9 Anemia, unspecified; N18.30 Chronic kidney disease, stage 3 unspecified; I89.0 Lymphedema, not elsewhere classified; K44.9 Diaphragmatic hernia without obstruction or gangrene; K80.20 Calculus of gallbladder without cholecystitis without obstruction; Z20.822 Contact with and (suspected) exposure to COVID-19; Z96.653 Presence of artificial knee joint, bilateral; Z85.850 Personal history of malignant neoplasm of thyroid; Z79.52 Long term (current) use of systemic steroids
CPT/HCPCS: OP; 99231-AI; 99232-AI; 99233-AI; 99239; A9284; G0378; J0696; J1160; J1644; J2405; J3370; J3475; J7030; J7050; J7120; J7512; Q9967

== ENCOUNTER 2021-05-20 21:45 | Emergency (ER) | payer MEDICARE ==
[~2021-05-20] VITALS: Ht 154.9 cm; Wt 118.2 kg
[~2021-05-20 21:45] MED LIST changes: +BUMEX 1MG TA1 MG/TA1 PO; +MACROBID 1100 MG/CAP PO; +TIMOPTIC 0.5%-10 OU
[2021-05-20 21:47] VITALS: TEMP 98.1
[2021-05-20 22:54] LABS: HEMOGLOBIN 11.7 g/dl (12.5-16.0); MEAN CELL VOLUME 94 fl (80.0-100.0); MEAN CORPUSCULAR HEMOGLOBIN 30 pg (27.0-31.0); MEAN CORPUSCULAR HGB CONC 32 g/dl (33.0-37.0); MEAN PLATELET VOLUME 9.7 fl (7.4-10.4); PLATELET COUNT 150 K/mm3 (130-400); REDCELL DISTRIBUTION WIDTH-CV 15.6 % (11.5-14.5)
[2021-05-20 22:58] LABS: HEMATOCRIT 36.8 % (37.0-47.0)
[2021-05-20 23:03] LABS: ALANINE AMINOTRANSFERASE 52 U/L (0-55); ALKALINE PHOSPHATASE 233 U/L (40-150); ANION GAP 14 mmol/L (7-16); AST,SGOT 39 U/L (5-34); BILIRUBIN,TOTAL 1.7 mg/dL (0.2-1.2); BLOOD UREA NITROGEN 48 mg/dL (10-20); C-REACTIVE PROTEIN 2.09 mg/dL (0.00-0.50); CALCIUM 8.9 mg/dL (8.4-10.2); CARBON DIOXIDE 28 mmol/L (23-31); CHLORIDE 95 mmol/L (98-107); GLUCOSE 124 mg/dL (70-99); POTASSIUM 4.1 mmol/L (3.5-4.5); SODIUM 137 mmol/L (136-145); TOTAL PROTEIN 7.4 gm/dL (6.2-8.1)
[2021-05-20 23:10] LABS: TROPONIN-I < 0.010 ng/mL (0.00-0.033)
[2021-05-20 23:32] LABS: BAND 10 % (0-10); EOSINOPHIL 1 % (0-4); LYMPHOCYTE 9 % (20.0-51.0); METAMYELOCYTE 1 % (0-0); NEUTROPHILS 72 % (42.0-75.2); PLATELET ESTIMATE NORMAL (NORMAL)
[2021-05-21 00:13] LABS: COLLECTION METHOD CLEAN CATCH
[2021-05-21 00:24] LABS: PH 7 (5-8); SQUAMOUS EPITHELIAL 0-2 /hpf (0-10); URINE APPEARANCE Clear (CLEAR/HAZY); URINE BACTERIA None Seen (NONE SEEN); URINE BILIRUBIN Negative (NEGATIVE); URINE BLOOD 1+ (NEGATIVE); URINE COLOR Straw (YELLOW); URINE GLUCOSE Negative (NEGATIVE); URINE KETONE Negative (NEGATIVE); URINE LEUKOCYTE ESTERASE 1+ (NEGATIVE); URINE NITRATE Negative (NEGATIVE); URINE PROTEIN(semi-quant) Negative (NEGATIVE); URINE UROBILINOGEN Negative (NEGATIVE)
[2021-05-21] MEDS ORDERED: EFFEXOR 75M75 MG/TAB PO (03:08)
[2021-05-21 08:08] LABS: HEMOGLOBIN 11.4 g/dl (12.5-16.0); MEAN CELL VOLUME 93 fl (80.0-100.0); MEAN CORPUSCULAR HEMOGLOBIN 30 pg (27.0-31.0); MEAN CORPUSCULAR HGB CONC 33 g/dl (33.0-37.0); MEAN PLATELET VOLUME 9.3 fl (7.4-10.4); PLATELET COUNT 137 K/mm3 (130-400); RED BLOOD COUNT 3.76 M/mm3 (4.10-5.30); REDCELL DISTRIBUTION WIDTH-CV 15.6 % (11.5-14.5)
[2021-05-21 08:11] LABS: HEMATOCRIT 34.9 % (37.0-47.0)
[2021-05-21 08:22] LABS: CALCIUM 9.3 mg/dL (8.4-10.2); CREATININE, serum 1.5 mg/dL (0.57-1.11); POTASSIUM 3.4 mmol/L (3.5-4.5)
[2021-05-21 08:31] LABS: BASOPHIL 1 % (0-2); EOSINOPHIL 1 % (0-4); LYMPHOCYTE 7 % (20.0-51.0); NEUTROPHILS 83 % (42.0-75.2); PLATELET ESTIMATE NORMAL (NORMAL)
[2021-05-21 08:32] LABS: ANISOCYTOSIS 1+; HYPOCHROMIA 1+
[2021-05-21 09:30] VITALS: BP 135/81; PULSE 80
== END 2021-05-21 10:03 | disposition short-term general hospital (02) ==
LOC: COL.ER 21:45
PROVIDERS: Emergency Medicine; Student in an Organized Health Care Education/Training Program
DX: N39.0 Urinary tract infection, site not specified (principal); N28.9 Disorder of kidney and ureter, unspecified; R55 Syncope and collapse; I48.91 Unspecified atrial fibrillation; I13.0 Hypertensive heart and chronic kidney disease with heart failure and stage 1 through stage 4 chronic kidney disease, or unspecified chronic kidney disease; I50.9 Heart failure, unspecified; G47.33 Obstructive sleep apnea (adult) (pediatric); M79.7 Fibromyalgia; Z88.1 Allergy status to other antibiotic agents; Z88.2 Allergy status to sulfonamides; Z79.899 Other long term (current) drug therapy
CPT/HCPCS: 99223-AI; C9113; J0696; J2405; J7030; J7512

== ENCOUNTER 2021-07-09 15:34 | Emergency (ER) | payer MEDICARE ==
[~2021-07-09] VITALS: Ht 154.9 cm; Wt 100.0 kg
[~2021-07-09 15:34] MED LIST changes: +EFFEXOR 75M75 MG/TAB PO
[2021-07-09 15:39] VITALS: TEMP 98.5
[2021-07-09 16:39] LABS: COLLECTION METHOD CATHETER
[2021-07-09 16:51] LABS: BASO # 0.1 K/mm3 (0.0-0.2); EOS # 0.2 K/mm3 (0.0-0.7); EOS % 2.4 % (0.0-4.0); GRAN # 6.1 K/mm3 (1.4-6.5); GRAN % 75.5 % (42.2-75.2); HEMATOCRIT 37.5 % (37.0-47.0); HEMOGLOBIN 12.5 g/dl (12.5-16.0); LYMPH % 12.8 % (20.0-51.0); MEAN CELL VOLUME 92 fl (80.0-100.0); MEAN CORPUSCULAR HEMOGLOBIN 31 pg (27-31); MEAN CORPUSCULAR HGB CONC 33 g/dl (33.0-37.0); MEAN PLATELET VOLUME 9.9 fl (7.4-10.4); MONO # 0.6 K/mm3 (0.1-0.6); MONO % 7.4 % (1.7-9.3); PLATELET COUNT 151 K/mm3 (130-400)
[2021-07-09 16:58] LABS: PH 6 (5-8); SQUAMOUS EPITHELIAL 0-2 /hpf (0-10); URINE APPEARANCE Cloudy (CLEAR/HAZY); URINE BACTERIA Moderate /hpf (NONE SEEN); URINE BILIRUBIN Negative (NEGATIVE); URINE BLOOD 1+ (NEGATIVE); URINE COLOR Yellow (YELLOW); URINE GLUCOSE Negative (NEGATIVE); URINE KETONE Negative (NEGATIVE); URINE LEUKOCYTE ESTERASE 3+ (NEGATIVE); URINE NITRATE Negative (NEGATIVE); URINE PROTEIN(semi-quant) Negative (NEGATIVE); URINE UROBILINOGEN Negative (NEGATIVE)
[2021-07-09 16:59] LABS: ALANINE AMINOTRANSFERASE 42 U/L (0-55); ALBUMIN 3.7 gm/dL (3.4-4.8); ALKALINE PHOSPHATASE 209 U/L (40-150); ANION GAP 14 mmol/L (7-16); AST,SGOT 43 U/L (5-34); BILIRUBIN,TOTAL 1.2 mg/dL (0.2-1.2); BLOOD UREA NITROGEN 32 mg/dL (10-20); CALCIUM 9.5 mg/dL (8.4-10.2); CARBON DIOXIDE 26 mmol/L (23-31); CHLORIDE 96 mmol/L (98-107); CREATININE, serum 1.37 mg/dL (0.57-1.11); GLUCOSE 133 mg/dL (70-99); POTASSIUM 3.5 mmol/L (3.5-4.5); SODIUM 136 mmol/L (136-145); TOTAL PROTEIN 7.3 gm/dL (6.2-8.1)
[2021-07-09 17:19] LABS: TROPONIN-I < 0.010 ng/mL (0.00-0.033); TSH w REFLEX < 0.003 uIU/mL (0.350-4.940)
[2021-07-09 19:14] VITALS: BP 132/86; PULSE 18
== END 2021-07-09 19:14 | disposition home or self-care (01) ==
LOC: COL.ER 15:34
PROVIDERS: Emergency Medicine
DX: U07.1 COVID-19 (principal); N39.0 Urinary tract infection, site not specified; I48.91 Unspecified atrial fibrillation; I50.9 Heart failure, unspecified; N18.9 Chronic kidney disease, unspecified; K21.9 Gastro-esophageal reflux disease without esophagitis; E78.5 Hyperlipidemia, unspecified; M79.7 Fibromyalgia; Z73.0 Burn-out; Z79.899 Other long term (current) drug therapy
CPT/HCPCS: J0696

== ENCOUNTER 2022-06-12 11:24 | Day surgery (SDC) | payer MEDICARE ==
[~2022-06-12] VITALS: Ht 154.9 cm; Wt 126.9 kg
[2022-06-12 12:45] LABS: HEMOGLOBIN 10.9 g/dl (12.5-16.0); MEAN CELL VOLUME 97 fl (80.0-100.0); MEAN CORPUSCULAR HEMOGLOBIN 30 pg (27-31); MEAN CORPUSCULAR HGB CONC 31 g/dl (33.0-37.0); PLATELET COUNT 169 K/mm3 (130-400); RED BLOOD COUNT 3.59 M/mm3 (4.10-5.30); REDCELL DISTRIBUTION WIDTH-CV 17.1 % (11.5-14.5)
[2022-06-12 12:46] LABS: HEMATOCRIT 34.7 % (37.0-47.0)
[2022-06-12 12:54] VITALS: BP 134/84; PULSE 55; TEMP 98.3
[2022-06-12 13:01] LABS: ANION GAP 13 mmol/L (7-16); BLOOD UREA NITROGEN 42 mg/dL (10-20); CALCIUM 9.2 mg/dL (8.4-10.2); CARBON DIOXIDE 31 mmol/L (23-31); CHLORIDE 99 mmol/L (98-107); CREATININE, serum 1.41 mg/dL (0.57-1.11); GLUCOSE 115 mg/dL (70-99); MAGNESIUM 2.3 mg/dL (1.6-2.6); POTASSIUM 4.2 mmol/L (3.5-4.5); SODIUM 143 mmol/L (136-145)
[2022-06-12] MEDS ORDERED: VITAMIND3 5000 PO (13:01)
[2022-06-12 13:02] LABS: INR 1.2 (0.8-3.0); PROTHROMBIN TIME 13.6 SECONDS (9.7-12.8)
[2022-06-12] MEDS ORDERED: ELIQUIS 5MG PO (13:02)
[2022-06-12 13:05] LABS: PARTIAL THROMBOPLASTIN TIME 30.4 SECONDS (26.0-37.0)
[2022-06-12] MEDS ORDERED: BUMEX 1MG TA1 MG/TA1 PO (13:05)
[2022-06-12] MEDS ORDERED: NORCO 325 MG-7.1 TAB PO (13:08)
[2022-06-12] MEDS ORDERED: SYNTHROID0.088 MG/T PO (13:09)
[2022-06-12] MEDS ORDERED: IMODIUM 2MG CAPS2 MG PO (13:10)
[2022-06-12] MEDS ORDERED: MACRODANTIN50 MG/CA1 PO (13:11)
[2022-06-12] MEDS ORDERED: ZOFRAN 4MG T4 MG/TAB PO (13:13)
[2022-06-12 13:22] LABS: THYROID STIMULATING HORMONE <0.003 uIU/mL (0.350-4.940)
[2022-06-12 13:25] VITALS: BP 113/76; PULSE 93
[2022-06-12 13:45] VITALS: BP 100/58; PULSE 52
--- NOTE | 2022-06-12 13:52 | NUR ---
Pt sitting up in bed, awake and alert after cardioversion. Sinus aguila on monitor, hr 54, telemetry employed. Report received from Darrion LACEY. Pt drinking water. RT has been called for repeat EKG.
[2022-06-12 14:00] VITALS: BP 107/60; PULSE 49
[2022-06-12 14:15] VITALS: BP 121/83; PULSE 54
[2022-06-12 14:30] VITALS: BP 123/72; PULSE 53
[2022-06-12] MEDS ORDERED: PACERONE400 MG PO (14:40)
[2022-06-12] MEDS ORDERED: ZEBETA 5MG5 MG PO (14:41)
--- NOTE | 2022-06-12 15:14 | NUR ---
Discharge instructions given to pt.Pt verbalizes understanding.Pt escorted out via wheelchair by this nurse.
[2022-08-29] MEDS ORDERED: PRINIVIL2.5 MG PO (16:48)
== END 2022-06-12 15:23 ==
LOC: COL.CAR 11:24
PROVIDERS: Internal Medicine Cardiovascular Disease
DX: I48.0 Paroxysmal atrial fibrillation (principal); I10 Essential (primary) hypertension; E66.01 Morbid (severe) obesity due to excess calories; G47.33 Obstructive sleep apnea (adult) (pediatric); I08.3 Combined rheumatic disorders of mitral, aortic and tricuspid valves; K21.9 Gastro-esophageal reflux disease without esophagitis; Z79.899 Other long term (current) drug therapy; Z68.43 Body mass index [BMI] 50.0-59.9, adult
CPT/HCPCS: J2704